=== PATIENT | male | born 1960 ===

== ENCOUNTER → 2020-11-18 11:08 | Outpatient (BNVA) | payer OTHER, SELFPAY | PROVIDERS: PCP Internal Medicine; Referring Provider Internal Medicine; Visit Provider Urology | DX: Z76.89 Persons encountering health services in other specified circumstances (principal) ==

== ENCOUNTER → 2021-08-15 09:19 | Outpatient (BNVA) | payer OTHER, SELFPAY | PROVIDERS: PCP Student in an Organized Health Care Education/Training Program; Visit Provider Urology ==

== ENCOUNTER → 2021-09-19 08:36 | Outpatient (BNVA) | payer OTHER, SELFPAY | PROVIDERS: PCP Student in an Organized Health Care Education/Training Program; Visit Provider Urology ==

== ENCOUNTER → 2022-02-13 08:36 | Outpatient (BNVA) | payer OTHER, SELFPAY | PROVIDERS: PCP Student in an Organized Health Care Education/Training Program; Visit Provider Urology | DX: N40.1 Benign prostatic hyperplasia with lower urinary tract symptoms (principal); N13.8 Other obstructive and reflux uropathy; N41.1 Chronic prostatitis; N52.9 Male erectile dysfunction, unspecified; R97.20 Elevated prostate specific antigen [PSA] | CPT/HCPCS: 51798 ==

== ENCOUNTER 2022-08-29 08:37 | Outpatient (REF) | payer OTHER, SELFPAY ==
[2022-08-29 10:52] LABS: Prostate Specific Antigen 2.46 ng/mL (<0.05-4.0)
== END 2022-08-29 08:38 | disposition home or self-care (01) ==
LOC: HO.10HDL 08:37
PROVIDERS: Visit Provider Urology
DX: N40.1 Benign prostatic hyperplasia with lower urinary tract symptoms (principal); N13.8 Other obstructive and reflux uropathy; R97.20 Elevated prostate specific antigen [PSA]; Z12.5 Encounter for screening for malignant neoplasm of prostate
CPT/HCPCS: 36415; 84153

== ENCOUNTER 2023-03-05 14:39 | Outpatient (REF) | payer OTHER, SELFPAY ==
[2023-03-05 16:04] LABS: Prostate Specific Antigen 4.68 ng/mL (<0.05-4.0)
== END 2023-03-05 14:40 | disposition home or self-care (01) ==
LOC: HO.LAB 14:39
PROVIDERS: Visit Provider Urology
DX: Z12.5 Encounter for screening for malignant neoplasm of prostate (principal); R97.20 Elevated prostate specific antigen [PSA]
CPT/HCPCS: 36415; 84153

== ENCOUNTER → 2023-03-12 11:08 | Outpatient (BNVA) | payer OTHER, SELFPAY | PROVIDERS: PCP Internal Medicine; Visit Provider Urology ==

== ENCOUNTER 2023-09-05 11:00 | Outpatient (REF) | payer OTHER, SELFPAY ==
[2023-09-05 14:02] LABS: PSA,Total (Free>4and<10) 3.83 ng/mL (0.00-4.00)
== END 2023-09-05 11:01 | disposition home or self-care (01) ==
LOC: HO.10HDL 11:00
PROVIDERS: Visit Provider Urology
DX: Z12.5 Encounter for screening for malignant neoplasm of prostate (principal); R97.20 Elevated prostate specific antigen [PSA]
CPT/HCPCS: 36415; 84153

== ENCOUNTER 2023-09-11 15:28 | Outpatient (AMB) | payer OTHER, SELFPAY ==
--- NOTE | 2023-09-11 15:34 | MHC.OFFVIS ---
Intake Intake Visit Reasons: 6m/PSA(set) Intake Note: Patient is Present for Follow Up Urology Medication: Finasteride Antibiotic Allergies: None Blood Thinners: Aspirin Allergies No Known Allergies Allergy (Verified 03/12/23 11:15) Medication List - Last Reconciled 09/11/23 by Johan Tovar MD aspirin 81 mg PO DAILY atorvastatin 40 mg PO DAILY finasteride 5 mg PO DAILY 90 days rosuvastatin 5 mg PO DAILY sildenafil 100 mg PO ONCE PRN 30 days HPI HPI Comments History of Present Illness Details German a very pleasant male. He is a patient of Dr. Hermosillo. 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 Symptoms have been present for/since gradual during 2017. Current treatment includes Viagra/sildenafil. Treatment side effects include none. Prior therapies include oral medications. At this time he experiences erections 07/22 are partial and adequate for vaginal penetration, that last until ejaculation, YOSVANY 12-16 Mild-Moderate ED. Nocturnal erections do occur. Currently they are in a stable relationship. Overall he is satisfied with the current management. Therapeutic plan includes increasing dose of oral medication. [facility] Medical History Elevated PSA Prostatitis BPH (benign prostatic hyperplasia) Surgical History History of vasectomy Review of Systems Const Denies chills and Denies fever(s) Card Reports no additional complaints and Denies syncope Resp Denies cough GI Denies abdominal pain and Denies heartburn Reports as per HPI and Denies change in libido Neuro Denies syncope Psych Denies change in libido Endo Denies change in libido Physical Exam Const General: cooperative, healthy appearing, comfortable and no acute distress Orientation/consciousness: patient oriented x3 HEENT Face and sinus: Yes normal facial exam Mouth: moist mucous membranes Neck Neck: Yes normal visual inspection, Yes full ROM and Yes trachea midline Chest Chest palpation & inspection: normal inspection of the chest Resp Effort & Inspection: normal respiratory effort, able to speak in complete sentences and no respiratory distress GI Inspection: Yes normal to inspection Back/Spine/Pelvis Cervical Spine: normal cervical lordosis Thoracic/Lumbar Spine: thoracic and lumbar spine normal to inspection Skin General skin exam: no rashes or lesions noted Neuro General: patient oriented x3, gait normal, tone normal and moves all extremities Extrem General: Yes normal to inspection and Yes capillary refill normal Assessment & Plan Assessment & Plan (1) Erectile dysfunction: Code(s): N52.9 - Male erectile dysfunction, unspecified (2) Elevated PSA: Code(s): R97.20 - Elevated prostate specific antigen [PSA] (3) BPH w urinary obs/LUTS: Code(s): N40.1 - Benign prostatic hyperplasia with lower urinary tract symptoms; N13.8 - Other obstructive and reflux uropathy Plan Six month follow-up Orders: Orders Prostate Specific Antigen 6 Months R97.20 - Elevated prostate specific antigen [PSA] Patient Instructions: Imaging studies, laboratory and physical exam results were discussed and reviewed in detail. No major barriers to patient understanding were identified. An opportunity to ask questions regarding the treatment plan was provided. All questions were answered. The patient expressed understanding and agreement with the above treatment plan. The patient is aware they should contact our office by phone for worsening of their current condition or the appearance of new urologic symptoms. Compliance is encouraged with any medications and followup testing that is ordered. It is a privilege to participate in the urologic care of your patient. If you have any questions or concerns regarding treatment for the above conditions, or other urologic issues, please do not hesitate to contact me. The office telephone contact is [phone]. This note is constructed using voice recognition software. While every effort has been made to ensure accuracy tacker off errors may have been included. Yours sincerely, Dr Johan Tovar MD, [facility] - Urology Providers of Expert, Compassionate Care for the Genitourinary System Coding Level of Care Code Est Pt Level 3 (84973) Diagnoses Erectile dysfunction N52.9 Elevated PSA R97.20 BPH w urinary obs/LUTS N40.1; N13.8
== END 2023-09-11 16:29 | disposition home or self-care (01) ==
PROVIDERS: Visit Provider Urology
DX: N52.9 Male erectile dysfunction, unspecified (principal); R97.20 Elevated prostate specific antigen [PSA]; N40.1 Benign prostatic hyperplasia with lower urinary tract symptoms; N13.8 Other obstructive and reflux uropathy
CPT/HCPCS: 99213

== ENCOUNTER → 2023-09-11 15:28 | Outpatient (BNVA) | payer OTHER, SELFPAY | PROVIDERS: Visit Provider Urology ==

== ENCOUNTER 2024-03-03 12:14 | Outpatient (REF) | payer OTHER, SELFPAY ==
[2024-03-03 14:20] LABS: Prostate Specific Antigen 1.98 ng/mL (<0.05-4.0)
== END 2024-03-03 12:15 | disposition home or self-care (01) ==
LOC: HO.10HDL 12:14
PROVIDERS: Visit Provider Urology
DX: R97.20 Elevated prostate specific antigen [PSA] (principal); Z12.5 Encounter for screening for malignant neoplasm of prostate
CPT/HCPCS: 36415; 84153

== ENCOUNTER 2024-03-12 08:39 | Outpatient (AMB) | payer OTHER, SELFPAY ==
--- NOTE | 2024-03-12 08:40 | MHC.OFFVIS ---
Intake Visit Reasons: 6m/PSA(set) Intake Note: Patient is Present for Telephone Follow Up Urology Med: Finasteride, Sildenafil Antibiotic Allergy:None Blood Thinner:Aspirin Allergies No Known Allergies Allergy (Verified 03/12/24 08:41) Medication List - Last Reconciled 03/12/24 by Johan Tovar MD aspirin 81 mg PO DAILY atorvastatin 40 mg PO DAILY finasteride 5 mg PO DAILY 90 days rosuvastatin 5 mg PO DAILY sildenafil 100 mg PO ONCE PRN 30 days HPI Comments Details: German a very pleasant male. He is a patient of Dr. Hermosillo. 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 02/25 2.0 Current therapy finasteride - every other day - minimal libido impact - 05/24 urine DNA test regarding risk for prostate cancer came back equivocal Erectile dysfunction: He presents today for for continued evaluation and management of erectile dysfunction. Symptoms have been present for/since gradual during 2017. Current treatment includes Viagra/sildenafil. Treatment side effects include none. Prior therapies include oral medications. At this time he experiences erections 07/22 are partial and adequate for vaginal penetration, that last until ejaculation, YOSVANY 12-16 Mild-Moderate ED. Nocturnal erections do occur. Currently they are in a stable relationship. Overall he is satisfied with the current management. Therapeutic plan includes increasing dose of oral medication. [facility] Medical History Elevated PSA Prostatitis BPH (benign prostatic hyperplasia) Surgical History History of vasectomy Telehealth Telehealth Telehealth Platform: Spontaneously Location of provider rendering services: practice address Location of patient: address on file Patient Identification confirmed using: Name, : Yes Telehealth method: video Patient verbally consented to treatment: Yes Patient verbally consented to billing insurance company: Yes Patient informed of any privacy concerns related to visit: Yes Minutes spent on Phone/Video with Pt.: 15 Assessment & Plan Assessment & Plan (1) BPH w urinary obs/LUTS: Code(s): N40.1 - Benign prostatic hyperplasia with lower urinary tract symptoms; N13.8 - Other obstructive and reflux uropathy Category: Medical (2) Prostatitis: Code(s): N41.9 - Inflammatory disease of prostate, unspecified Category: Medical (3) Elevated PSA: Code(s): R97.20 - Elevated prostate specific antigen [PSA] Category: Medical Plan Six month follow-up PSA Refill prescriptions Orders: Orders Prostate Specific Antigen 6 Months N41.9 - Inflammatory disease of prostate, unspecified, R97.20 - Elevated prostate specific antigen [PSA] Medications: Refilled finasteride 5 mg PO DAILY 90 days 90 tabs 1RF N40.1 - Benign prostatic hyperplasia with lower urinary tract symptoms, R33.9 - Retention of urine, unspecified sildenafil administer 60 minutes before intended activity 100 mg PO ONCE 30 days PRN 30 tabs 1RF sexual activity N52.9 - Male erectile dysfunction, unspecified Patient Instructions: Imaging studies, laboratory and physical exam results were discussed and reviewed in detail. No major barriers to patient understanding were identified. An opportunity to ask questions regarding the treatment plan was provided. All questions were answered. The patient expressed understanding and agreement with the above treatment plan. The patient is aware they should contact our office by phone for worsening of their current condition or the appearance of new urologic symptoms. Compliance is encouraged with any medications and followup testing that is ordered. It is a privilege to participate in the urologic care of your patient. If you have any questions or concerns regarding treatment for the above conditions, or other urologic issues, please do not hesitate to contact me. The office telephone contact is [phone]. This note is constructed using voice recognition software. While every effort has been made to ensure accuracy product technician errors may have been included. Yours sincerely, Dr Johan Tovar MD, [facility] - Urology Providers of Expert, Compassionate Care for the Genitourinary System Coding Level of Care Code Tele Est Pt Level 3 (34825) Diagnoses BPH w urinary obs/LUTS N40.1; N13.8 Prostatitis N41.9 Elevated PSA R97.20
== END 2024-03-12 09:44 | disposition home or self-care (01) ==
LOC: HO.HUSH 08:39
PROVIDERS: PCP Internal Medicine; Visit Provider Urology
DX: N40.1 Benign prostatic hyperplasia with lower urinary tract symptoms (principal); N13.8 Other obstructive and reflux uropathy; N41.9 Inflammatory disease of prostate, unspecified; R97.20 Elevated prostate specific antigen [PSA]
CPT/HCPCS: 99213

== ENCOUNTER → 2024-03-12 08:39 | Outpatient (BNVA) | payer OTHER, SELFPAY | PROVIDERS: PCP Internal Medicine; Visit Provider Urology ==

== ENCOUNTER 2024-09-02 13:30 | Outpatient (REF) | payer OTHER, SELFPAY ==
[2024-09-02 15:06] LABS: Prostate Specific Antigen 2.01 ng/mL (<0.05-4.0)
== END 2024-09-02 13:31 | disposition home or self-care (01) ==
LOC: HO.LAB 13:30
PROVIDERS: PCP Internal Medicine; Visit Provider Urology
DX: R97.20 Elevated prostate specific antigen [PSA] (principal); N41.9 Inflammatory disease of prostate, unspecified; Z12.5 Encounter for screening for malignant neoplasm of prostate
CPT/HCPCS: 36415; 84153

== ENCOUNTER 2024-09-11 11:40 | Outpatient (AMB) | payer OTHER, SELFPAY ==
--- NOTE | 2024-09-11 11:38 | A.OFFVIS_ITS ---
Intake Visit Reasons: 6m/PSA(set) Intake Note: Patient Is Present for PSA Follow Up Urology Med: Sildenafil, Finasteride Antibiotic Allergy: None Blood Thinner: Aspirin PSA 09/02/24- 2.01 Allergies No Known Allergies Allergy (Verified 03/12/24 08:41) HPI Comments Details: German a very pleasant male. He is a patient of Dr. Hermosillo. 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 02/25 2.0, 08/27 2.0 Current therapy finasteride - every other day - minimal libido impact - 05/24 urine DNA test regarding risk for prostate cancer came back equivocal Erectile dysfunction: He presents today for for continued evaluation and management of erectile dysfunction. Symptoms have been present for/since gradual during 2017. Current treatment includes Viagra/sildenafil. Treatment side effects include none. Prior therapies include oral medications. At this time he experiences erections 07/22 are partial and adequate for vaginal penetration, that last until ejaculation, YOSVANY 12-16 Mild-Moderate ED. Nocturnal erections do occur. Currently they are in a stable relationship. Overall he is satisfied with the current management. Therapeutic plan includes increasing dose of oral medication. [facility] Medical History Elevated PSA Prostatitis BPH (benign prostatic hyperplasia) Surgical History History of vasectomy Review of Systems Const Denies chills and Denies fever(s) Card Reports no additional complaints and Denies syncope Resp Denies cough GI Denies abdominal pain and Denies heartburn Reports as per HPI and Denies change in libido Neuro Denies syncope Psych Denies change in libido Endo Denies change in libido Physical Exam Const General: cooperative, healthy appearing, comfortable and no acute distress Orientation/consciousness: patient oriented x3 HEENT Face and sinus: Yes normal facial exam Mouth: moist mucous membranes Neck Neck: Yes normal visual inspection, Yes full ROM and Yes trachea midline Chest Chest palpation & inspection: normal inspection of the chest Resp Effort & Inspection: normal respiratory effort, able to speak in complete sentences and no respiratory distress GI Inspection: Yes normal to inspection Back/Spine/Pelvis Cervical Spine: normal cervical lordosis Thoracic/Lumbar Spine: thoracic and lumbar spine normal to inspection Skin General skin exam: no rashes or lesions noted Neuro General: patient oriented x3, gait normal, tone normal and moves all extremities Extrem General: Yes normal to inspection and Yes capillary refill normal Assessment & Plan Assessment & Plan (1) BPH w urinary obs/LUTS: Code(s): N40.1 - Benign prostatic hyperplasia with lower urinary tract symptoms; N13.8 - Other obstructive and reflux uropathy Category: Medical (2) Elevated PSA: Code(s): R97.20 - Elevated prostate specific antigen [PSA] Category: Medical (3) Erectile dysfunction: Code(s): N52.9 - Male erectile dysfunction, unspecified Category: Medical Plan Six-month follow-up Orders: Orders Prostate Specific Antigen 6 Months R97.20 - Elevated prostate specific antigen [PSA] Patient Instructions: Imaging studies, laboratory and physical exam results were discussed and reviewed in detail. No major barriers to patient understanding were identified. An opportunity to ask questions regarding the treatment plan was provided. All questions were answered. The patient expressed understanding and agreement with the above treatment plan. The patient is aware they should contact our office by phone for worsening of their current condition or the appearance of new urologic symptoms. Compliance is encouraged with any medications and followup testing that is ordered. It is a privilege to participate in the urologic care of your patient. If you have any questions or concerns regarding treatment for the above conditions, or other urologic issues, please do not hesitate to contact me. The office telephone contact is [phone]. This note is constructed using voice recognition software. While every effort has been made to ensure accuracy automotive manufacturer errors may have been included. Yours sincerely, Dr Johan Tovar MD, [facility] - Urology Providers of Expert, Compassionate Care for the Genitourinary System Coding Level of Care Code Est Pt Level 3 (94853) Diagnoses BPH w urinary obs/LUTS N40.1; N13.8 Elevated PSA R97.20 Erectile dysfunction N52.9
== END 2024-09-11 12:15 | disposition home or self-care (01) ==
PROVIDERS: PCP Internal Medicine; Visit Provider Urology
DX: N40.1 Benign prostatic hyperplasia with lower urinary tract symptoms (principal); N13.8 Other obstructive and reflux uropathy; R97.20 Elevated prostate specific antigen [PSA]; N52.9 Male erectile dysfunction, unspecified
CPT/HCPCS: 99213

== ENCOUNTER → 2024-09-11 11:40 | Outpatient (BNVA) | payer OTHER, SELFPAY | PROVIDERS: PCP Internal Medicine; Visit Provider Urology ==

== ENCOUNTER 2025-03-08 14:34 | Outpatient (REF) | payer OTHER, SELFPAY ==
--- OUTSIDE RECORDS SUMMARY | 2025-03-08 16:06 | XMS_ITS ---
Author Organization [facility] [place] [address] Care Team Providers Care Conditioner Tumbler Name Role Phone BLANCHARDETHEL MADRIGAL Unavailable [phone] Encounters Encounter Location Date Provider Diagnosis [facility] [address] [facility] [address] [place] [address] 07/10/2024 ETHEL BLANCHARD PLAN OF TREATMENT Next Appt Details Provider Name:TYRON EDWARDS, 08/19/2025 08:15:00 AM, [address], [place], [address], Progress Notes * German YOUNGDOB: 0 (64 yo M)Acc No.[id number]:07/10/2024 Patient:??German YOUNG :1960?Age:64 Y?Sex:Gregorio minh Address:[address] [place] [address] * true * Date:??
--- OUTSIDE RECORDS SUMMARY | 2025-03-08 16:06 | XMS_ITS ---
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 Name Role Phone ETHEL HERMOSILLO Unavailable [phone] TYRON EDWARDS Unavailable [phone] ALLERGIES No Known Allergies REASON FOR VISIT pt is for 6 month f/u MEDICATIONS Medication SIG (Take, Route, Frequency, Duration) Notes Start Date End Date Status Multivitamin Active CoQ10 100 MG as directed Orally Active Rosuvastatin Calcium 5 MG 1 tablet Orall y every other day for 90 days Active Finasteride 5 MG 1 tablet Orally Once a day Active SOCIAL HISTORY Tobacco Use: Social History Observation Description Date Details (start date - stop date) Never Smoker NA - NA Sex Assigned At : Social History Observation Description Sex Assigned At Unknown Tobacco Use/Smoking Question Answer Notes Are you a nonsmoker Section Notes: Tobacco: None Alcohol: Socially Marijuana: None PROBLEMS Problem Type ICD Code Onset Dates Problem Status W/U Status Risk SNOMED Code Notes Problem BPH without urinary obstruction (N40.0) Active confirmed 246428944 Problem Overweight (BMI 25.0-29.9) (E66.3) Active confirmed 865922741 VITAL SIGNS Blood pressure systolic 112 mm Hg 02/19/20 25 Blood pressure diastolic 74 mm Hg 025 Heart Rate 64 /min 02/18/2025 Height 71 in 02/18/2025 Weight 207.4 lbs 02/18/2025 BMI 28.92 kg/m2 02/18/2025 Oximetry 96 % 02/18/2025 Encounters Encounter Location Date Provider Diagnosis [email or web address] [address] [place] [address] 02/18/2025 TYRON EDWARDS Mixed hyperlipidemia E78.2 ; BPH without urinary obstruction N40.0 and Overweight (BMI 25.0-29.9) E66.3 ASSESSMENTS Encounter Date Diagnosis Assessment Notes Treatment Notes Treatment Clinical Notes Section Notes 02/18/2025 Mixed hyperlipidemia (ICD-10 - E78.2) German is a 65-year-old male present today for 6-month follow-up. Past medical history includes BPH, hyperlipidemia and gout. #PSA #BPH: Most recent PSA from 08/2024 of 2.01. Followed by urology every 6 months. Monitors both PSA and BPH. BPH managed on finasteride 5 mg p.o. once daily. Continue with urology recommendations. #Elevated BMI: Wt: 207.4 lbs, BMI: 28.92 patient fairly active doing a variety of cardio as well as pickleball. Endorses a well-balanced diet, but does say he enjoys drinking beer. Recommend limiting alcohol, processed food and sugar. Will continue to monitor. #Hyperlipidemia: Patient has been tapering off of rosuvastatin at patient's request. Previously taking every other day and then had decreased to twice a week. Has been compliant with this. Has noticed a reduction in muscle cramps. Patient overall very active and eats a well-balanced diet. Given lipids within normal range, patient interested in trialing off of rosuvastatin. Recommended if patient is to proceed with this, will order a coronary calcium scan for further evaluation of any degree of coronary artery disease. Patient okay with this. Will call patient regarding test results. Will continue to monitor cholesterol closer. Recommend patient continue with daily fish oil as well as co-Q10 supplements. #Prevention: Plan follow-up in 6 months for CPE. Will obtain baseline labs as well as add on PSA. All questions answered to patients satisfaction. Patient verbalized understanding of diagnosis and treatments explained. To call sooner prior to next visit it any questions/concerns arise. Case discussed with collaborating physician Dr. Hermosillo who reviewed the assessment and plan. Chart, medications, labs, vital signs reviewed. Dictation was accomplished with the use of [employer] voice recognition software, prone to medical misidentifications and grammatical errors. This is unintentional and the practitioner does try to identify and correct these, but some could still be present. Please do not hesitate to contact practitioner for clarification. 02/18/2025 BPH without urinary obstruction (ICD-10 - N40.0) German is a 65-year-old male present today for 6-month follow-up. Past medical history includes BPH, hyperlipidemia and gout. #PSA #BPH: Most recent PSA from 08/2024 of 2.01. Followed by urology every 6 months. Monitors both PSA and BPH. BPH managed on finasteride 5 mg p.o. once daily. Continue with urology recommendations. #Elevated BMI: Wt: 207.4 lbs, BMI: 28.92 patient fairly active doing a variety of cardio as well as pickleball. Endorses a well-balanced diet, but does say he enjoys drinking beer. Recommend limiting alcohol, processed food and sugar. Will continue to monitor. #Hyperlipidemia: Patient has been tapering off of rosuvastatin at patient's request. Previously taking every other day and then had decreased to twice a week. Has been compliant with this. Has noticed a reduction in muscle cramps. Patient overall very active and eats a well-balanced diet. Given lipids within normal range, patient interested in trialing off of rosuvastatin. Recommended if patient is to proceed with this, will order a coronary calcium scan for further evaluation of any degree of coronary artery disease. Patient okay with this. Will call patient regarding test results. Will continue to monitor cholesterol closer. Recommend patient continue with daily fish oil as well as co-Q10 supplements. #Prevention: Plan follow-up in 6 months for CPE. Will obtain baseline labs as well as add on PSA. All questions answered to patients satisfaction. Patient verbalized understanding of diagnosis and treatments explained. To call sooner prior to next visit it any questions/concerns arise. Case discussed with collaborating physician Dr. Hermosillo who reviewed the assessment and plan. Chart, medications, labs, vital signs reviewed. Dictation was accomplished with the use of [employer] voice recognition software, prone to medical misidentifications and grammatical errors. This is unintentional and the practitioner does try to identify and correct these, but some could still be present. Please do not hesitate to contact practitioner for clarification. 02/18/2025 Overweight (BMI 25.0-29.9) (ICD-10 - E66.3) German is a 65-year-old male present today for 6-month follow-up. Past medical history includes BPH, hyperlipidemia and gout. #PSA #BPH: Most recent PSA from 08/2024 of 2.01. Followed by urology every 6 months. Monitors both PSA and BPH. BPH managed on finasteride 5 mg p.o. once daily. Continue with urology recommendations. #Elevated BMI: Wt: 207.4 lbs, BMI: 28.92 patient fairly active doing a variety of cardio as well as pickleball. Endorses a well-balanced diet, but does say he enjoys drinking beer. Recommend limiting alcohol, processed food and sugar. Will continue to monitor. #Hyperlipidemia: Patient has been tapering off of rosuvastatin at patient's request. Previously taking every other day and then had decreased to twice a week. Has been compliant with this. Has noticed a reduction in muscle cramps. Patient overall very active and eats a well-balanced diet. Given lipids within normal range, patient interested in trialing off of rosuvastatin. Recommended if patient is to proceed with this, will order a coronary calcium scan for further evaluation of any degree of coronary artery disease. Patient okay with this. Will call patient regarding test results. Will continue to monitor cholesterol closer. Recommend patient continue with daily fish oil as well as co-Q10 supplements. #Prevention: Plan follow-up in 6 months for CPE. Will obtain baseline labs as well as add on PSA. All questions answered to patients satisfaction. Patient verbalized understanding of diagnosis and treatments explained. To call sooner prior to next visit it any questions/concerns arise. Case discussed with collaborating physician Dr. Hermosillo who reviewed the assessment and plan. Chart, medications, labs, vital signs reviewed. Dictation was accomplished with the use of [employer] voice recognition software, prone to medical misidentifications and grammatical errors. This is unintentional and the practitioner does try to identify and correct these, but some could still be present. Please do not hesitate to contact practitioner for clarification. PLAN OF TREATMENT Pending Test Test Name Order Date LIPID PANEL, STANDARD 02/18/2025 COMPREHENSIVE METABOLIC PANEL 02/18/2025 CBC (INCLUDES DIFF/PLT) 02/18/2025 HEMOGLOBIN A1c 02/18/2025 PSA (FREE AND TOTAL) 02/18/2025 VITAMIN D,25-OH,TOTAL,IA 02/18/2025 TSH+T4F+T3Free 02/18/2025 Next Appt Details Provider Name:TYRON EDWARDS, 08/19/2025 08:15:00 AM, [address], [place], [address], Progress Notes * German YOUNGDOB: [birth year] (65 yo M)Acc No.[id number]:02/18/2025 Progress Notes Patient:??German YOUNG Provider:??TYRON EDWARDS PA-C :1960?Age:65 Y?Sex:Ma le Date:02/18/2025 Address:[address] [place], [place] [id number] Subjective: * Chief Complaints: * ?1. Pt is for 6 month f /u. * HPI: ?Constitutional:? German is a 65-year-old male present today for 6-month follow-up. Past medical history includes BPH, hyperlipidemia and history of gout. ?Patient followed by urology with Dr. Tovar, last visit in September. Monitoring both PSA and BPH. PSA from 08/2024 of 2.01. Followed by urology every 6 months. Patient also followed with podiatry and dermatology. ?Patient on rosuvastatin and expressed interest of getting off of this medication. Initially decreased to rosuvastatin 5 mg every other day in which patient had reduced muscle cramping. At last visit on 07/20, patient reduced rosuvastatin to 5 mg twice a week. ?Reviewed blood work ordered prior to this visit which revealed cholesterol within normal limits, CMP, CBC and urinalysis unremarkable. ?Patient overall doing well. States he is active, runs on treadmill. * ROS:?Constitutional: Patient denies any excessive fatigue with exercise, no weight loss, no fever, no night sweats, no changes in sleep. ???Eyes: No eye discharge, no itching, no redness, no vision changes. Advised the significance of regular eye exams to screen for glaucoma and other eye problems. ???Ear nose throat: No ear pain, No sore throat, no postnasal drip, no runny nose, no sneezing, no hearing changes ???Cardiovascular: No chest pain, no dyspnea on exertion, no PND, no orthopnea, no irregular pulse, no palpitations, no claudication, no diaphoresis, no claudication. ???Respiratory: No chronic cough, no hemoptysis, no sputum, no wheezing, no SOB, no pleuritic pain. ???GI, No diarrhea, no constipation, no blood in the stools, no pain associated with eating, no indigestion, no difficulty swallowing, no appetite change. ???Genitourinary: No painful urination, no hesitancy, no blood in the urine, no incontinence, no frequency, no urgency, no abnormal discharge. ???Musculoskeletal: No back pain, no joint pain, no limitations to walking and running, no joint deformity, no joint stiffness, no muscle weakness ???Integumentary: No new skin rash. No new changes in skin moles, no pruritis, no color change. ???Neurological: No history of seizures, no memory loss, no language dysfunction, no inability to concentrate, no localized weakness, no sensation loss, no confusion, no dizziness, no tremor, no numbness, no tingling. ???Psychiatric: no anxiety, no depression, no suicidal thoughts, feels safe at home. ???Endocrine: No polyuria, no polyphagia, no polydipsia. No heat/cold intolerance, no excesss thirst. ???Hematological: No easy bruising or bleeding, no lymph node swelling. * Medical History:??Seasonal a llergies, Hyperlipidemia, BPH. * Surgical History:??Denies Pa st Surgical History. * Hospitalization/Major Diagno stic Procedure:??Denies Past Hospitalization. * Family History:??Father: dec eased.??Mother: alive.?? * Social History:?Tobacco Use:??Tobacco Use/Smoking??Are you a??nonsmoker.?Tobacco: None ???Alcohol: Socially ???Marijuana: None. * Medications:??Taking CoQ10 1 00 MG Capsule as directed Orally , Taking Multivitamin , Taking Finasteride 5 MG Tablet 1 tablet Orally Once a day , Taking Rosuvastatin Calcium 5 MG Tablet 1 tablet Orally every other day , Medication List reviewed and reconciled with the patient * Allergies:??N.K.D.A. Objective: * Vitals:??HR:64/min, BP:112/7 4mm Hg, Wt:207.4lbs, BMI:28.92Index, Ht: 71 in, Oxygen sat %:96%. * Physical Examination:?General: Age appropriate male, well appearing, no acute distress, speaking in full sentences without respiratory compromise. Well groomed, well developed. Alert, Interactive. ? Skin: Warm, dry and intact. ? HEENT: Normocephalic/atraumatic. ? Neck/Thyroid: Supple. Full ROM. ? Lung: Clear to auscultation bilaterally, no wheezes, rales or rhonchi. No barrel chest. Equal chest rise and fall bilaterally. ? Cardiac: S1 and S2 appreciated. No murmurs/rubs or gallops. ? Psych: Stable mood and affect. Assessment: * Assessment: 1.??Mixed hyperlipidemia - E 78.2 (Primary)??2.??BPH without urinary obstruction - N40.0??3.??Overweight (BMI 25.0-29.9) - E66.3?? German is a 65-year-old male p resent today for 6-month follow-up. Past medical history includes BPH, hyperlipidemia and gout. #PSA #BPH: Most recent PSA from 08/2024 of 2.01. Followed by urology every 6 months. Monitors both PSA and BPH. BPH managed on finasteride 5 mg p.o. once daily. Continue with urology recommendations. #Elevated BMI: Wt: 207.4 lbs, BMI: 28.92 patient fairly active doing a variety of cardio as well as pickleball. Endorses a well-balanced diet, but does say he enjoys drinking beer. Recommend limiting alcohol, processed food and sugar. Will continue to monitor. #Hyperlipidemia: Patient has been tapering off of rosuvastatin at patient's request. Previously taking every other day and then had decreased to twice a week. Has been compliant with this. Has noticed a reduction in muscle cramps. Patient overall very active and eats a well-balanced diet. Given lipids within normal range, patient interested in trialing off of rosuvastatin. Recommended if patient is to proceed with this, will order a coronary calcium scan for further evaluation of any degree of coronary artery disease. Patient okay with this. Will call patient regarding test results. Will continue to monitor cholesterol closer. Recommend patient continue with daily fish oil as well as co-Q10 supplements. #Prevention: Plan follow-up in 6 months for CPE. Will obtain baseline labs as well as add on PSA. All questions answered to patients satisfaction. Patient verbalized understanding of diagnosis and treatments explained. To call sooner prior to next visit it any questions/concerns arise. Case discussed with collaborating physician Dr. Hermosillo who reviewed the assessment and plan. Chart, medications, labs, vital signs reviewed. Dictation was accomplished with the use of [employer] voice recognition software, prone to medical misidentifications and grammatical errors. This is unintentional and the practitioner does try to identify and correct these, but some could still be present. Please do not hesitate to contact practitioner for clarification. Plan: * Treatment: * Labs:?? * ?Lab: HEMOGLOBIN A1 c ?Lab: PSA (FREE AND TOTAL) ?Lab: VITAMIN D,25- [place],TOTAL,IA ?Lab: TSH+T4F+T3Fre e ?Lab: COMPREHENSIVE METABOLIC PANEL ?Lab: CBC (INCLUDES DIFF/PLT) ?Lab: LIPID PANEL, STANDARD * Images: Billing Information: * Visit Code:?? 24250 Office Visit, Est Pt., Level 4. Modifiers: SA * Procedure Codes:?? Care Plan Details* * Sign off status: Completed true * Provider:??TYRON EDWARDS PA-C Date:?? History and Physical Notes * HPI (History of Present Illness) Category Sub-Category Detail Notes Category Not es Constitutional German is a 65-year-old male present today for 6-month follow-up. Past medical history includes BPH, hyperlipidemia and history of gout. Patient followed by urology with Dr. Tovar, last visit in September. Monitoring both PSA and BPH. PSA from 08/2024 of 2.01. Followed by urology every 6 months. Patient also followed with podiatry and dermatology. Patient on rosuvastatin and expressed interest of getting off of this medication. Initially decreased to rosuvastatin 5 mg every other day in which patient had reduced muscle cramping. At last visit on 07/20, patient reduced rosuvastatin to 5 mg twice a week. Reviewed blood work ordered prior to this visit which revealed cholesterol within normal limits, CMP, CBC and urinalysis unremarkable. Patient overall doing well. States he is active, runs on treadmill. Physical Examination Category Sub-Category Detail Notes Section Note s General: Age appropriate male, well appearing, no acute distress, speaking in full sentences without respiratory compromise. Well groomed, well developed. Alert, Interactive. Skin: Warm, dry and intact. HEENT: Normocephalic/atraumatic. Neck/Thyroid: Supple. Full ROM. Lung: Clear to auscultation bilaterally, no wheezes, rales or rhonchi. No barrel chest. Equal chest rise and fall bilaterally. Cardiac: S1 and S2 appreciated. No murmurs/rubs or gallops. Psych: Stable mood and affect.
--- OUTSIDE RECORDS SUMMARY | 2025-03-08 16:06 | XMS_ITS ---
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 Name Role Phone JENSEN HERMOSILLO Unavailable [phone] ALLERGIES No Known Allergies REASON FOR VISIT pt presents in office today for routine follow up with completed labs for review MEDICATIONS Medication SIG (Take, Route, Frequency, Duration) Notes Start Date End Date Status CoQ10 100 MG as directed Orally Active Finasteride 5 MG 1 tablet Orally Once a day Active Multivitamin Active Rosuvastatin Calcium 5 MG 1 tablet Orall y every other day for 90 days Active SOCIAL HISTORY Tobacco Use: Social History Observation Description Date Details (start date - stop date) Never Smoker NA - NA Sex Assigned At : Social History Observation Description Sex Assigned At Unknown Tobacco Use/Smoking Question Answer Notes Are you a nonsmoker Section Notes: Tobacco: None Alcohol: Socially Marijuana: None VITAL SIGNS Blood pressure systolic 134 mm Hg 07/20/20 24 Blood pressure diastolic 80 mm Hg 024 Heart Rate 65 /min 07/20/2024 Height 71 in 07/20/2024 Weight 201.6 lbs 07/20/2024 BMI 28.11 kg/m2 07/20/2024 Oximetry 97 % 07/20/2024 Encounters Encounter Location Date Provider Diagnosis [facility] [address] [place] [address] 07/20/2024 AZEBKARON FERNÁNDEZAN Elevated lipids E78. 5 and Benign prostatic hyperplasia without lower urinary tract symptoms N40.0 ASSESSMENTS Encounter Date Diagnosis Assessment Notes Treatment Notes Treatment Clinical Notes Section Notes 07/20/2024 Elevated lipids (ICD-10 - E78.5) German is a well appearing 64 yr old M who presents with no acute concerns. Physical exam is unremarkable. Assessment is a well appearing 64 yr old M with BPH followed by urology, HLD, and gout. Patient educated to obtain flu vaccination in August, patient declines Covid booster at this time. Patient should continue scheduled follow up with dermatology, podiatry and urology. Plan is to follow up in February and repeat labs then. #HLD - Most recent labs - Last visit patient Rosuvastatin decreased to 5 mg every other day. Endorses reduced muscle cramping with this dose - Plan is to reduced Rosuvastatin to 5 mg twice a week and follow up in February with repeat labs. #BPH - Last PSA Jul 2023 2.6 - Denies any urinary concerns - Plan is to continue finasteride and follow up with urology 07/20/2024 Benign prostatic hyperplasia without lower urinary tract symptoms (ICD-10 - N40.0) German is a well appearing 64 yr old M who presents with no acute concerns. Physical exam is unremarkable. Assessment is a well appearing 64 yr old M with BPH followed by urology, HLD, and gout. Patient educated to obtain flu vaccination in August, patient declines Covid booster at this time. Patient should continue scheduled follow up with dermatology, podiatry and urology. Plan is to follow up in February and repeat labs then. #HLD - Most recent labs - Last visit patient Rosuvastatin decreased to 5 mg every other day. Endorses reduced muscle cramping with this dose - Plan is to reduced Rosuvastatin to 5 mg twice a week and follow up in February with repeat labs. #BPH - Last PSA Jul 2023 2.6 - Denies any urinary concerns - Plan is to continue finasteride and follow up with urology PLAN OF TREATMENT Pending Test Test Name Order Date LIPID PANEL, STANDARD 07/20/2024 COMPREHENSIVE METABOLIC PANEL 07/20/2024 CBC (INCLUDES DIFF/PLT) 07/20/2024 URINALYSIS, COMPLETE 07/20/2024 Next Appt Details Provider Name:TYRON EDWARDS, 08/19/2025 08:15:00 AM, [address], [place], [address], Progress Notes * German YOUNGDOB: [birth year] (64 yo M)Acc No.[id number]:07/20/2024 Progress Notes Patient:??German YOUNG Provider:??Jensen Hermosillo MD :1960?Age:64 Y?Sex:Gregorio wilkinson Date:07/20/2024 Address: [id number] Subjective: * Chief Complaints: * ?1. Pt presents in offi ce today for routine follow up with completed labs for review. * HPI: ?Constitutional:? 64 yr old M with a PMHx of HLD, BPH and gout presents for follow up. Last visit patient was interested in discontinuing his Rosuvastatin, was decreased to 5 mg every other day back in January. Has had decreased muscle aches with the reduction in med dosing. Still running 2 miles a day and pickleball multiple times a week. Patient states he still has occasional L hallux pain, followed by podiatry, was recommended to have a fusion. Followed by Dermatology for multiple actinic keratosis on his head, see them next in November, Denies and chest pain, SOB, dizziness or headache. ?Labs 07/2024 Cholesterol Total 153, Triglycerides 83, HDL Cholesterol 61, VLDL Cholesterol Kash 16, LDL Chol Calc ([facility]) 76 ?Influenza: due ?COVID: due, declines ?Shingrix: completed in 2020 ?Tdap: last in 2020 ?Colonoscopy: 2020 ?PSA: 2.6 Jul 2023, followed by urology () will see in September. * ROS:?Constitutional: Patient denies any excessive fatigue with exercise, no weight loss, no fever and no night sweats ???Eyes: No eye discharge, no itching, no redness. Advised the significance of regular eye exams to screen for glaucoma and other eye problems ???Ear nose throat: No sore throat, postnasal drip, runny nose, Sneezing ???Cardiovascular: No chest pain, no shortness of breath, no dyspnea on exertion, no PND, no orthopnea, no irregular pulse ???Respiratory: No chronic cough, no hemoptysis, no sputum, no wheezing ???GI, no diarrhea, no constipation no blood in the stools, no pain associated with eating, no indigestion ???Genitourinary: No painful urination no hesitancy no blood in the urine ???Musculoskeletal, +right great toe pain and stiffness, no limitations to walking and running, no chronic back pain, no noise with joint movement ???Integumentary, +scalp peeling s/p light therapy ???Neurological: No history of seizures, memory loss, No language dysfunction, No inability to concentrate, no localized weakness, no sensation loss, no confusion ???Psychiatric: No depression, no suicidal thoughts, no anxiety ???Endocrine: No polyuria no polyphagia or polydipsia, no heat intolerance no cold intolerance ???Hematological: No easy bruising or Lymph node swelling. * Medical History:??Seasonal a llergies. * Family History:??Father: dec eased.??Mother: alive.?? * [...] with the patient * Allergies:??N.K.D.A. Objective: * Vitals:??HR:65/min, BP:134/8 0mm Hg, Wt:201.6lbs, BMI:28.11Index, Ht: 71 in, Oxygen sat %:97%. * Physical Examination:?Patient seen and examined ?Vitals noted ?Head and ENT: PERRLA EOMI, neck supple, good range of motion, thyroid within normal limits. No sinus tenderness. ?Cardiovascular system S1 and S2 with no murmur or gallop or rubs. ?Lungs clear to percussion and auscultation ?Abdomen soft positive bowel sounds no hepatosplenomegaly ?Extremities no edema. Mild swelling to right great toe with slight bunion. No erythema, warmth, or deformity. ?Neuro: No gross deficit, sensation and power intact. . Reflexes appear normal ?Gait appears age-appropriate ?Skin exam: mild peeling skin of the scalp with mild erythema and crusting. No new skin rashes or lesion. Assessment: * Assessment: 1.??Elevated lipids - E78.5? ?2.??Benign prostatic hyperplasia without lower urinary tract symptoms - N40.0?? German is a well appearing 64 yr old M who presents with no acute concerns. Physical exam is unremarkable. Assessment is a well appearing 64 yr old M with BPH followed by urology, HLD, and gout. Patient educated to obtain flu vaccination in August, patient declines Covid booster at this time. Patient should continue scheduled follow up with dermatology, podiatry and urology. Plan is to follow up in February and repeat labs then. #HLD - Most recent labs - Last visit patient Rosuvastatin decreased to 5 mg every other day. Endorses reduced muscle cramping with this dose - Plan is to reduced Rosuvastatin to 5 mg twice a week and follow up in February with repeat labs. #BPH - Last PSA Jul 2023 2.6 - Denies any urinary concerns - Plan is to continue finasteride and follow up with urology. Plan: * Treatment: * Labs:?? * ?Lab: URINALYSIS, C OMPLETE ?Lab: COMPREHENSIVE METABOLIC PANEL ?Lab: CBC (INCLUDES DIFF/PLT) * Images: Billing Information: * Visit Code:?? 61590 Office Visit, Est Pt., Level 4. * Procedure Codes:?? Care Plan Details* * Sign off status: Completed true * Provider:??Jensen Hermosillo MD Date:??07/20 History and Physical Notes * HPI (History of Present Illness) Category Sub-Category Detail Notes Category Not es Constitutional 64 yr old M with a PMHx of HLD, BPH and gout presents for follow up. Last visit patient was interested in discontinuing his Rosuvastatin, was decreased to 5 mg every other day back in January. Has had decreased muscle aches with the reduction in med dosing. Still running 2 miles a day and pickleball multiple times a week. Patient states he still has occasional L hallux pain, followed by podiatry, was recommended to have a fusion. Followed by Dermatology for multiple actinic keratosis on his head, see them next in November, Denies and chest pain, SOB, dizziness or headache. Labs 07/2024 Cholesterol Total 153, Triglycerides 83, HDL Cholesterol 61, VLDL Cholesterol Kash 16, LDL Chol Calc ([facility]) 76 Influenza: due COVID: due, declines Shingrix: completed in 2020 Tdap: last in 2020 Colonoscopy: 2020 PSA: 2.6 Jul 2023, followed by urology () will see in September Physical Examination Category Sub-Category Detail Notes Section Note s Patient seen and examined Vitals noted Head and ENT: PERRLA EOMI, neck supple, good range of motion, thyroid within normal limits. No sinus tenderness. Cardiovascular system S1 and S2 with no murmur or gallop or rubs. Lungs clear to percussion and auscultation Abdomen soft positive bowel sounds no hepatosplenomegaly Extremities no edema. Mild swelling to right great toe with slight bunion. No erythema, warmth, or deformity. Neuro: No gross deficit, sensation and power intact. . Reflexes appear normal Gait appears age-appropriate Skin exam: mild peeling skin of the scalp with mild erythema and crusting. No new skin rashes or lesion.
--- OUTSIDE RECORDS SUMMARY | 2025-03-08 16:07 | XMS_ITS | Patient Health Record ---
Author Organization [facility] Address [address] [place] [address] Care Team Providers Care Steam Trap Man Name Role Phone ETHEL HERMOSILLO Unavailable [phone] TYRON EDWARDS Unavailable [phone] ALLERGIES No Known Allergies RESULTS Component Value Reference Range Notes LIPID PANEL, STANDARD Reviewed date:02/17/2025 10:08:46 AM Interpretation: Performing Lab:NL2, [facility] [address] [place], [place] [address] Elliott Allen Notes/Report: FASTING: YES FASTING:YES CHOLESTEROL, TOTAL 155 <200 mg/dL HDL CHOLESTEROL 64 > OR = 40 mg/dL TRIGLYCERIDES 59 <150 mg/dL LDL-CHOLESTEROL 77 Reference range: <100 Desirable range <100 mg/dL for primary prevention; <70 mg/dL for patients with CHD or diabetic patients with > or = 2 CHD risk factors. LDL-C is now calculated using the Manuel-Yaya calculation, which is a validated novel method providing better accuracy than the Friedewald equation in the estimation of LDL-C. Manuel GOYAL et al. RACHEL. 2013;310(19): 4005-8610 (http://education.Invrep.[employer]/faq/QBY285) CHOL/HDLC RATIO 2.4 <5.0 (calc) NON HDL CHOLESTEROL 91 <130 mg/dL (calc) For patients with diabetes plus 1 major ASCVD risk factor, treating to a non-HDL-C goal of <100 mg/dL (LDL-C of <70 mg/dL) is considered a therapeutic option. COMPREHENSIVE METABOLIC PANE L Reviewed date:02/17/2025 10:08:35 AM Interpretation: Performing Lab:2, [facility] Elliott Allen Notes/Report: FASTING:YES FASTING: YES GLUCOSE 93 65-99 mg/dL Fasting reference interval UREA NITROGEN (BUN) 21 7-25 mg/dL CREATININE 0.94 0.70-1.35 mg/dL EGFR 90 > OR = 60 mL/min/1.73m2 BUN/CREATININE RATIO SEE NOTE: 6-22 (calc) Not Reported: BUN and Creatinine are within reference range. SODIUM 135 135-146 mmol/L POTASSIUM 4.2 3.5-5.3 mmol/L CHLORIDE 101 98-110 mmol/L CARBON DIOXIDE 28 20-32 mmol/L CALCIUM 9.1 8.6-10.3 mg/dL PROTEIN, TOTAL 6.5 6.1-8.1 g/dL ALBUMIN 4.3 3.6-5.1 g/dL GLOBULIN 2.2 1.9-3.7 g/dL (calc) ALBUMIN/GLOBULIN RATIO 2.0 1.0-2.5 (calc) BILIRUBIN, TOTAL 0.5 0.2-1.2 mg/dL ALKALINE PHOSPHATASE 51 35-144 U/L AST 18 10-35 U/L ALT 17 9-46 U/L CBC (INCLUDES DIFF/PLT) Reviewed date:02/17/2025 10:08:35 AM Interpretation: Performing Lab:RICHARD2, [facility] Elliott Allen Notes/Report: FASTING:YES FASTING: YES WHITE BLOOD CELL COUNT 5.0 3.8-10.8 Thousand/ uL RED BLOOD CELL COUNT 5.10 4.20-5.80 Million/uL HEMOGLOBIN 14.7 13.2-17.1 g/dL HEMATOCRIT 45.3 38.5-50.0 % MCV 88.8 80.0-100.0 fL MCH 28.8 27.0-33.0 pg MCHC 32.5 32.0-36.0 g/dL For adults, a slight decrease in the calculated MCHC value (in the range of 30 to 32 g/dL) is most likely not clinically significant; however, it should be interpreted with caution in correlation with other red cell parameters and the patient's clinical condition. RDW 13.4 11.0-15.0 % PLATELET COUNT 165 140-400 Thousand/uL MPV 11.5 7.5-12.5 fL ABSOLUTE NEUTROPHILS 2685 0910-5258 cells/uL ABSOLUTE LYMPHOCYTES 9494 720-8536 cells/uL ABSOLUTE MONOCYTES 500 200-950 cells/uL ABSOLUTE EOSINOPHILS 140 15-500 cells/uL ABSOLUTE BASOPHILS 30 0-200 cells/uL NEUTROPHILS 53.7 LYMPHOCYTES 32.9 MONOCYTES 10.0 EOSINOPHILS 2.8 BASOPHILS 0.6 URINALYSIS, COMPLETE Reviewed date:02/17/2025 10:08:35 AM Interpretation: Performing Lab:NL2, [facility] [address] [place], [place] [id number] Elliott Allen Notes/Report: FASTING:YES FASTING: YES COLOR YELLOW YELLOW APPEARANCE CLEAR CLEAR SPECIFIC GRAVITY 1.009 1.001-1.035 PH 6.0 5.0-8.0 GLUCOSE NEGATIVE NEGATIVE BILIRUBIN NEGATIVE NEGATIVE KETONES NEGATIVE NEGATIVE OCCULT BLOOD NEGATIVE NEGATIVE PROTEIN NEGATIVE NEGATIVE NITRITE NEGATIVE NEGATIVE LEUKOCYTE ESTERASE NEGATIVE NEGATIVE WBC NONE SEEN < OR = 5 /HPF RBC NONE SEEN < OR = 2 /HPF SQUAMOUS EPITHELIAL CELLS NONE SEEN < OR = 5 /HPF BACTERIA NONE SEEN NONE SEEN /HPF HYALINE CAST NONE SEEN NONE SEEN /LPF NOTE This urine was analyzed for the presence of WBC, RBC, bacteria, casts, and other formed elements. Only those elements seen were reported. Uric Acid-[id number] Reviewed date:07/16/2024 08:16:35 AM Interpretation: Performing Lab:[facility], [address] [facility], Phone - [phone], Director - Christiano Notes/Report: Uric Acid 4.0 3.8-8.4 mg/dL Therapeutic ta rget for gout patients: <6.0 Urinalysis, Routine-[id number] Reviewed date:07/16/2024 08:16:35 AM Interpretation: Performing Lab:[facility], [address] [facility], Phone - [phone], Director - MDJodry Notes/Report: Specific [place] 1.006 1.005-1.030 pH 7.0 5.0-7.5 Urine-Color Yellow Yellow Appearance Clear Clear WBC Esterase Negative Negative Protein Negative Negative/Trace Glucose Negative Negative Ketones Negative Negative Occult Blood Negative Negative Bilirubin Negative Negative Urobilinogen,Semi-Qn 0.2 0.2-1.0 mg/dL Nitrite, Urine Negative Negative Microscopic Examination Micr oscopic not indicated and not performed. CBC With Differential/Platel et-[id number] Reviewed date:07/16/2024 08:16:35 AM Interpretation: Performing Lab:[facility] [place], [address] [facility], [place], Phone - [phone], Director - Christiano Notes/Report: WBC 4.4 3.4-10.8 x10E3/uL RBC 5.06 4.14-5.80 x10E6/uL Hemoglobin 14.6 13.0-17.7 g/dL Hematocrit 45.6 37.5-51.0 % MCV 90 79-97 fL MCH 28.9 26.6-33.0 pg MCHC 32.0 31.5-35.7 g/dL RDW 13.5 11.6-15.4 % Platelets 168 150-450 x10E3/uL Neutrophils 65 Not Estab. % Lymphs 24 Not Estab. % Monocytes 8 Not Estab. % Eos 2 Not Estab. % Basos 1 Not Estab. % Immature Cells Neutrophils (Absolute) 2.9 1.4-7.0 x10E3/uL Lymphs (Absolute) 1.0 0.7-3.1 x10E3/uL Monocytes(Absolute) 0.3 0.1-0.9 x10E3/uL Eos (Absolute) 0.1 0.0-0.4 x10E3/uL Baso (Absolute) 0.0 0.0-0.2 x10E3/uL Immature Granulocytes 0 Not Estab. % Immature Grans (Abs) 0.0 0.0-0.1 x10E3/uL NR Hematology Comments: Lipid Panel-[id number] Reviewed date:07/16/2024 08:16:35 AM Interpretation: Performing Lab:[facility] [place], [address] [facility], [place], Phone - [phone], Director - Christiano Notes/Report: Cholesterol, Total 153 100-199 mg/dL Triglycerides 83 0-149 mg/dL HDL Cholesterol 61 >39 mg/dL VLDL Cholesterol Kash 16 5-40 mg/dL LDL Chol Calc ([facility]) 76 0-99 mg/dL LDL Calc Comment: Comp. Metabolic Panel ([id number] Reviewed date:07/16/2024 08:16:35 AM Interpretation: Performing Lab:[facility] [place], [address], [place], Phone - [phone], Director - Christiano Notes/Report: Glucose 94 70-99 mg/dL BUN 14 8-27 mg/dL Creatinine 1.04 0.76-1.27 mg/dL eGFR 80 >59 mL/min/1.73 BUN/Creatinine Ratio 13 10-24 Sodium 140 134-144 mmol/L Potassium 4.7 3.5-5.2 mmol/L Chloride 103 96-106 mmol/L Carbon Dioxide, Total 24 20-29 mmol/L Calcium 9.3 8.6-10.2 mg/dL Protein, Total 6.6 6.0-8.5 g/dL Albumin 4.4 3.9-4.9 g/dL Globulin, Total 2.2 1.5-4.5 g/dL Bilirubin, Total 0.4 0.0-1.2 mg/dL Alkaline Phosphatase 67 44-121 IU/L AST (SGOT) 23 0-40 IU/L ALT (SGPT) 16 0-44 IU/L REASON FOR REFERRAL No Information MEDICATIONS Medication SIG (Take, Route, Frequency, Duration) Notes Start Date End Date Status Multivitamin Active CoQ10 100 MG as directed Orally Active Rosuvastatin Calcium 5 MG 1 tablet Orall y every other day for 90 days Active Finasteride 5 MG 1 tablet Orally Once a day Active IMMUNIZATIONS Vaccine Route Administration Date Status Comme nts influenza IM Intramuscular 08/21/2023 Administered SOCIAL HISTORY Tobacco Use: Social History Observation Description Date Details (start date - stop date) Never Smoker NA - NA Sex Assigned At : Social History Observation Description Sex Assigned At Unknown Tobacco Use/Smoking Question Answer Notes Are you a nonsmoker Section Notes: Tobacco: None Alcohol: Socially Marijuana: None Tobacco: None Alcohol: Socially Marijuana: None Tobacco: None Alcohol: Socially Marijuana: None Tobacco: None Alcohol: Socially Marijuana: None Tobacco: None Alcohol: Socially Marijuana: None Tobacco: None Alcohol: Socially Marijuana: None PROBLEMS Problem Type ICD Code Onset Dates Problem Status W/U Status Risk SNOMED Code Notes Problem Vitamin D deficiency, unspecified (E55.9) Active confirmed 57004219 Problem Mixed hyperlipidemia (E78.2) Active confirmed 041749304 Problem Gout, unspecified (M10.9) Active confirmed Gout (03209782) Problem Encounter for general adult medical examination without abnormal findings (Z00.00) Active confirmed 144743338 Problem Encounter for screening for malignant neoplasm of prostate (Z12.5) Active confirmed 338601790 Problem Encounter for screening for diabetes mellitus (Z13.1) Active confirmed 512276434 Problem Encounter for screening for other suspected endocrine disorder (Z13.29) Active confirmed 165664931 Problem Annual physical exam (Z00.00) Active confirmed 424404853 Problem Overweight (BMI 25.0-29.9) (E66.3) Active confirmed 697936410 Problem Elevated lipids (E78.5) Active confirmed Elevated fasting lipid profile (727720588693 ) Problem Lipid screening (Z13.220) Active confirmed 591910008 Problem BPH without urinary obstruction (N40.0) Active confirmed 626441520 VITAL SIGNS Heart Rate 64 /min 02/18/2025 Blood pressure diastolic 74 mm Hg 02/18/2025 Oximetry 96 % 02/18/2025 Height 71 in 02/18/2025 Blood pressure systolic 112 mm Hg 02/18/2025 Weight 207.4 lbs 02/18/2025 BMI 28.92 kg/m2 02/18/2025 Encounters Encounter Location Date Provider Diagnosis [facility] [address] [place] [address] 07/20/2024 ETHEL HERMOSILLO Elevated lipids E78. 5 and Benign prostatic hyperplasia without lower urinary tract symptoms N40.0 [facility] [address] [place] [address] 02/18/2025 TYRON GRACE Mixed hyperlipidemia E78.2 ; BPH without urinary obstruction N40.0 and Overweight (BMI 25.0-29.9) E66.3 [facility] [address] [address] 07/10/2024 ETHEL HERMOSILLO ASSESSMENTS Encounter Date Diagnosis Assessment Notes Treatment [...] Dictation was accomplished with the use of Birdback voice recognition software, prone to medical misidentifications and grammatical errors. This is unintentional and the practitioner does try to identify and correct these, but some could still be present. Please do not hesitate to contact practitioner for clarification. 07/20/2024 Elevated lipids (ICD-10 - E78.5) German [...] continue finasteride and follow up with urology 02/18/2025 BPH without urinary obstruction (ICD-10 - [...] Dictation was accomplished with the use of [employer] voice recognition software, prone to medical misidentifications and grammatical errors. This is unintentional and the practitioner does try to identify and correct these, but some could still be present. Please do not hesitate to contact practitioner for clarification. 07/20/2024 Benign prostatic hyperplasia without lower urinary [...] continue finasteride and follow up with urology 02/18/2025 Overweight (BMI 25.0-29.9) (ICD-10 - E66.3) [...] Dictation was accomplished with the use of [employer] voice recognition software, prone to medical misidentifications and grammatical errors. This is unintentional and the practitioner does try to identify and correct these, but some could still be present. Please do not hesitate to contact practitioner for clarification. PLAN OF TREATMENT Pending Test Test Name Order Date EKG 04/18/2022 LIPID PANEL, STANDARD 07/20/2024 LIPID PANEL, STANDARD 02/18/2025 LIPID PANEL, STANDARD 01/15/2024 COMPREHENSIVE METABOLIC PANEL 01/15/2024 COMPREHENSIVE METABOLIC PANEL 02/18/2025 COMPREHENSIVE METABOLIC PANEL 07/20/2024 URIC ACID 01/15/2024 CBC (INCLUDES DIFF/PLT) 01/15/2024 CBC (INCLUDES DIFF/PLT) 02/18/2025 CBC (INCLUDES DIFF/PLT) 07/20/2024 URINALYSIS, COMPLETE 07/20/2024 URINALYSIS, COMPLETE 07/23/2022 URINALYSIS, COMPLETE 01/15/2024 HEMOGLOBIN A1c 02/18/2025 PSA (FREE AND TOTAL) 02/18/2025 VITAMIN D,25-OH,TOTAL,IA 02/18/2025 TSH+T4F+T3Free 02/18/2025 Next Appt Details Provider Name:TYRON EDWARDS, 08/19/2025 08:15:00 AM, [address], [place], [address], Insurance Providers Payer Name Payer Address Payer Phone Subscriber Number Group Number Insured Name Patient Relationship to Insured Coverage Start Date Coverage End Date [facility] [address] [place] [address] [id number] German Young Self - patient is the insured MEDICAL (GENERAL) HISTORY Medical History History ICD Code seasonal allergies Hyperlipidemia BPH
[2025-03-08 18:30] LABS: Prostate Specific Antigen 3.54 ng/mL (<0.05-4.0)
== END 2025-03-08 14:35 | disposition home or self-care (01) ==
LOC: HO.LAB 14:34
PROVIDERS: PCP Internal Medicine; Visit Provider Urology
DX: R97.20 Elevated prostate specific antigen [PSA] (principal); Z12.5 Encounter for screening for malignant neoplasm of prostate
CPT/HCPCS: 36415; 84153

== ENCOUNTER 2025-03-16 11:32 | Outpatient (AMB) | payer OTHER, SELFPAY ==
--- NOTE | 2025-03-16 11:33 | MHC.OFFVIS ---
Intake Visit Reasons: 6m/PSA Intake Note: pt here today for: 6M/PSA uro meds:Finasteride 5mg allergies:none blood thinner: None Marketing Strategy Manager Required: No Allergies No Known Allergies Allergy (Verified 03/16/25 12:00) HPI Comments Details: German a very pleasant male. He is a patient of Dr. Hermosillo. 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 02/25 2.0, 08/27 2.0, 03/28 3.5 Current therapy finasteride - every other day - minimal libido impact - 05/24 urine DNA test regarding risk for prostate cancer came back equivocal Erectile dysfunction: He presents today for for continued evaluation and management of erectile dysfunction. Symptoms have been present for/since gradual during 2017. Current treatment includes Viagra/sildenafil. Treatment side effects include none. Prior therapies include oral medications. At this time he experiences erections 07/22 are partial and adequate for vaginal penetration, that last until ejaculation, YOSVANY 12-16 Mild-Moderate ED. Nocturnal erections do occur. Currently they are in a stable relationship. Overall he is satisfied with the current management. Therapeutic plan includes increasing dose of oral medication. [facility] Medical History Elevated PSA Prostatitis BPH (benign prostatic hyperplasia) Surgical History History of vasectomy Review of Systems Const Denies chills and Denies fever(s) Card Reports no additional complaints and Denies syncope Resp Denies cough GI Denies abdominal pain and Denies heartburn Reports as per HPI and Denies change in libido Neuro Denies syncope Psych Denies change in libido Endo Denies change in libido Physical Exam Const General: cooperative, healthy appearing, comfortable and no acute distress Orientation/consciousness: patient oriented x3 HEENT Face and sinus: Yes normal facial exam Mouth: moist mucous membranes Neck Neck: Yes normal visual inspection, Yes full ROM and Yes trachea midline Chest Chest palpation & inspection: normal inspection of the chest Resp Effort & Inspection: normal respiratory effort, able to speak in complete sentences and no respiratory distress GI Inspection: Yes normal to inspection Back/Spine/Pelvis Cervical Spine: normal cervical lordosis Thoracic/Lumbar Spine: thoracic and lumbar spine normal to inspection Skin General skin exam: no rashes or lesions noted Neuro General: patient oriented x3, gait normal, tone normal and moves all extremities Extrem General: Yes normal to inspection and Yes capillary refill normal Assessment & Plan Assessment & Plan (1) BPH w urinary obs/LUTS: Code(s): N40.1 - Benign prostatic hyperplasia with lower urinary tract symptoms; N13.8 - Other obstructive and reflux uropathy Category: Medical (2) Elevated PSA: Code(s): R97.20 - Elevated prostate specific antigen [PSA] Category: Medical (3) Erectile dysfunction: Code(s): N52.9 - Male erectile dysfunction, unspecified Category: Medical Plan Prostate MRI Orders: Orders MR Prostate wo/w con 03/16/25 R97.20 - Elevated prostate specific antigen [PSA] Patient Instructions: This note is constructed using voice recognition software. 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 Imaging studies, laboratory and physical exam results were discussed and reviewed in detail. No major barriers to patient understanding were identified. An opportunity to ask questions regarding the treatment plan was provided. All questions were answered. The patient expressed understanding and agreement with the above treatment plan. The patient is aware they should contact our office by phone for worsening of their current condition or the appearance of new urologic symptoms. Compliance is encouraged with any medications and followup testing that is ordered. It is a privilege to participate in the urologic care of your patient. If you have any questions or concerns regarding treatment for the above conditions, or other urologic issues, please do not hesitate to contact me. The office telephone contact is [phone]. Sincerely, Dr Johan Tovar MD, [facility] - Urology Compassionate Specialist Care for the Genitourinary System Coding Level of Care Code Est Pt Level 3 (24393) Complex EM visit Add On G2211 Diagnoses BPH w urinary obs/LUTS N40.1; N13.8 Elevated PSA R97.20 Erectile dysfunction N52.9
--- OUTSIDE RECORDS SUMMARY | 2025-03-16 13:01 | XMS_ITS ---
Author Organization [facility] Address [address] [place] [address] Care Team Providers Care Nip Wrapper Name Role Phone ETHEL HERMOSILLO Unavailable [phone] TYRON EDWARDS Unavailable [phone] ALLERGIES No Known Allergies REASON FOR VISIT [...] BPH without urinary obstruction (N40.0) Active confirmed [id number] Problem Overweight (BMI 25.0-29.9) (E66.3) Active confirmed 310989613 VITAL SIGNS Blood pressure systolic 112 mm Hg 02/19/20 25 Blood pressure diastolic 74 mm Hg 025 Heart Rate 64 /min 02/18/2025 Height 71 in 02/18/2025 Weight 207.4 lbs 02/18/2025 BMI 28.92 kg/m2 02/18/2025 Oximetry 96 % 02/18/2025 Encounters Encounter Location Date Provider Diagnosis [facility] [address] [place] [address] 02/18/2025 TYRON EDWARDS Mixed hyperlipidemia E78.2 ; [...] Dictation was accomplished with the use of [employer] voice recognition software, prone to medical misidentifications [...] Dictation was accomplished with the use of [employer] voice recognition software, prone to medical misidentifications [...] Dictation was accomplished with the use of [employer] voice recognition software, prone to medical misidentifications [...] EDWARDS, 08/19/2025 08:15:00 AM, [address], [place], [address], Progress Notes * German YOUNGDOB: 0 (65 yo M)Acc No.[id number]:02/18/2025 Progress Notes Patient:??German YOUNG Provider:??TYRON EDWARDS PA-C :1960?Age:65 Y?Sex:Ma le Date:02/18/2025 Address:[address] [place], [place] [id number] Subjective: * Chief Complaints: * ?1. Pt [...] Dictation was accomplished with the use of [employer] voice recognition software, prone to medical misidentifications [...] * Images: Billing Information: * Visit Code:?? 01104 Office Visit, Est Pt., Level 4. Modifiers: [...]
--- OUTSIDE RECORDS SUMMARY | 2025-03-16 13:02 | XMS_ITS ---
Author Organization [facility] [place] [address] Care Team Providers Care Equipment Manager Name Role Phone BLANCHARDETHEL MADRIGAL Unavailable [phone] Encounters Encounter Location Date Provider Diagnosis [facility] [address] [facility] [address] [place] [address] 07/10/2024 ETHEL BLANCHARD PLAN OF TREATMENT Next Appt Details Provider Name:TYRON EDWARDS, 08/19/2025 08:15:00 AM, [address], [place], [address], Progress Notes * German YOUNGDOB: 0 (64 yo M)Acc No.[id number]:07/10/2024 Patient:??German YOUNG :1960?Age:64 Y?Sex:Gregorio minh Address:[address] [place] [address] * true * Date:??
--- OUTSIDE RECORDS SUMMARY | 2025-03-16 13:02 | XMS_ITS | Patient Health Record ---
Author Organization [facility] Address [address] [place] [address] Care Team Providers Care Locks Inspector Name Role Phone ETHEL HERMOSILLO Unavailable [phone] TYRON EDWARDS Unavailable [phone] ALLERGIES No Known Allergies RESULTS Component Value Reference Range Notes LIPID PANEL, STANDARD Reviewed date:02/17/2025 10:08:46 AM Interpretation: Performing Lab:NL2, [address] [facility] [address] [place], [place] [id number] Elliott Allen Notes/Report: FASTING: YES FASTING:YES CHOLESTEROL, [...] LDL-C. Manuel GOYAL et al. RACHEL. 2013;310(19): 0502-8072 (http://education.SafedoX.Quantifeed/faq/TPK008) CHOL/HDLC RATIO 2.4 <5.0 (calc) NON HDL CHOLESTEROL 91 <130 mg/dL (calc) For patients with diabetes plus 1 major ASCVD risk factor, treating to a non-HDL-C goal of <100 mg/dL (LDL-C of <70 mg/dL) is considered a therapeutic option. COMPREHENSIVE METABOLIC PANE L Reviewed date:02/17/2025 10:08:35 AM Interpretation: Performing Lab:[address] [facility] Elliott Allen Notes/Report: FASTING:YES FASTING: YES [...] Reviewed date:02/17/2025 10:08:35 AM Interpretation: Performing Lab:RICHARD2, [address] [facility] Elliott Allen Notes/Report: FASTING:YES FASTING: YES [...] MPV 11.5 7.5-12.5 fL ABSOLUTE NEUTROPHILS 2685 4139-2208 cells/uL ABSOLUTE LYMPHOCYTES 7797 018-8010 cells/uL ABSOLUTE MONOCYTES 500 200-950 cells/uL ABSOLUTE EOSINOPHILS 140 15-500 cells/uL ABSOLUTE BASOPHILS 30 0-200 cells/uL NEUTROPHILS 53.7 LYMPHOCYTES 32.9 MONOCYTES 10.0 EOSINOPHILS 2.8 BASOPHILS 0.6 URINALYSIS, COMPLETE Reviewed date:02/17/2025 10:08:35 AM Interpretation: Performing Lab:NL2, [address] [facility] [address] [place], [place] [address] Elliott Allen Notes/Report: FASTING:YES FASTING: YES COLOR [...] Only those elements seen were reported. Uric Acid-[id number] Reviewed date:07/16/2024 08:16:35 AM Interpretation: Performing Lab:[facility], [address] [facility], Phone - [phone], Director - Christiano Notes/Report: Uric Acid 4.0 3.8-8.4 mg/dL Therapeutic ta rget for gout patients: <6.0 Urinalysis, Routine-[id number] Reviewed date:07/16/2024 08:16:35 AM Interpretation: Performing Lab:[facility], [address] [facility], Phone - [phone], Director - MDJodry Notes/Report: Specific [place] 1.006 1.005-1.030 pH 7.0 5.0-7.5 Urine-Color Yellow Yellow Appearance Clear Clear WBC Esterase Negative Negative Protein Negative Negative/Trace Glucose Negative Negative Ketones Negative Negative Occult Blood Negative Negative Bilirubin Negative Negative Urobilinogen,Semi-Qn 0.2 0.2-1.0 mg/dL Nitrite, Urine Negative Negative Microscopic Examination Micr oscopic not indicated and not performed. CBC With Differential/Platel et-[id number] Reviewed date:07/16/2024 08:16:35 AM Interpretation: Performing Lab:[facility] [place], [address] [facility] [place], Phone - [phone], Director - Christiano Notes/Report: WBC 4.4 3.4-10.8 [...] 0.0 0.0-0.1 x10E3/uL NR Hematology Comments: Lipid Panel-[id number] Reviewed date:07/16/2024 08:16:35 AM Interpretation: Performing Lab:[facility] [place], [address] [facility] [place], Phone - [phone], Director - Christiano Notes/Report: Cholesterol, Total 153 100-199 mg/dL Triglycerides 83 0-149 mg/dL HDL Cholesterol 61 >39 mg/dL VLDL Cholesterol Kash 16 5-40 mg/dL LDL Chol Calc ([facility]) 76 0-99 mg/dL LDL Calc Comment: Comp. Metabolic Panel (14)-3 [id number] Reviewed date:07/16/2024 08:16:35 AM Interpretation: Performing Lab:[facility] [place], [address], [place], Phone - [phone], Director - Christiano Notes/Report: Glucose 94 70-99 [...] Vitamin D deficiency, unspecified (E55.9) Active confirmed 49756353 Problem Mixed hyperlipidemia (E78.2) Active confirmed 750006980 Problem Gout, unspecified (M10.9) Active confirmed Gout (75191516) Problem Encounter for general adult medical examination without abnormal findings (Z00.00) Active confirmed 801307668 Problem Encounter for screening for malignant neoplasm of prostate (Z12.5) Active confirmed 326904139 Problem Encounter for screening for diabetes mellitus (Z13.1) Active confirmed 359752793 Problem Encounter for screening for other suspected endocrine disorder (Z13.29) Active confirmed 799627983 Problem Annual physical exam (Z00.00) Active confirmed 072936077 Problem Overweight (BMI 25.0-29.9) (E66.3) Active confirmed 463314179 Problem Elevated lipids (E78.5) Active confirmed Elevated fasting lipid profile (590067826657 ) Problem Lipid screening (Z13.220) Active confirmed 528355519 Problem BPH without urinary obstruction (N40.0) Active confirmed 798203969 VITAL SIGNS Heart Rate 64 /min 02/18/2025 Oximetry 96 % 02/18/2025 Blood pressure diastolic 74 mm Hg 02/18/2025 Height 71 in 02/18/2025 Blood pressure systolic 112 mm Hg 02/18/2025 Weight 207.4 lbs 02/18/2025 BMI 28.92 kg/m2 02/18/2025 Encounters Encounter Location Date Provider Diagnosis [facility] [address] [place] [address] 07/20/2024 ETHEL HERMOSILLO Elevated lipids E78. 5 and Benign prostatic hyperplasia without lower urinary tract symptoms N40.0 [facility] [address] [place] [address] 02/18/2025 TYRON GRACE Mixed hyperlipidemia E78.2 ; BPH without urinary obstruction N40.0 and Overweight (BMI 25.0-29.9) E66.3 [facility] [address] [address] 07/10/2024 ETHEL HERMOSILLO ASSESSMENTS Encounter Date Diagnosis Assessment Notes Treatment Notes Treatment Clinical Notes Section Notes 02/18/2025 BPH without urinary obstruction (ICD-10 - [...] Dictation was accomplished with the use of [employer] voice recognition software, prone to medical [...] finasteride and follow up with urology 02/18/2025 Mixed hyperlipidemia (ICD-10 - E78.2) German [...] Dictation was accomplished with the use of [employer] voice recognition software, prone to medical [...] Dictation was accomplished with the use of [employer] voice recognition software, prone to medical [...] Order Date EKG 04/18/2022 LIPID PANEL, STANDARD 01/15/2024 LIPID PANEL, STANDARD 02/18/2025 LIPID PANEL, STANDARD 07/20/2024 COMPREHENSIVE METABOLIC PANEL 07/20/2024 COMPREHENSIVE METABOLIC PANEL 02/18/2025 COMPREHENSIVE METABOLIC PANEL 01/15/2024 URIC ACID 01/15/2024 CBC (INCLUDES DIFF/PLT) 01/15/2024 CBC (INCLUDES DIFF/PLT) 02/18/2025 CBC (INCLUDES DIFF/PLT) 07/20/2024 URINALYSIS, COMPLETE 07/20/2024 URINALYSIS, COMPLETE 07/23/2022 URINALYSIS, COMPLETE 01/15/2024 HEMOGLOBIN A1c 02/18/2025 PSA (FREE AND TOTAL) 02/18/2025 VITAMIN D,25-OH,TOTAL,IA 02/18/2025 TSH+T4F+T3Free 02/18/2025 Next Appt Details Provider Name:TYRON EDWARDS, 08/19/2025 08:15:00 AM, [address], [place], [address], Insurance Providers Payer Name Payer Address Payer Phone Subscriber Number Group Number Insured Name Patient Relationship to Insured Coverage Start Date Coverage End Date [facility] [address] [place] [address] [id number] German Young Self - patient is the insured MEDICAL (GENERAL) HISTORY Medical History History ICD Code seasonal allergies Hyperlipidemia BPH
--- OUTSIDE RECORDS SUMMARY | 2025-03-16 13:02 | XMS_ITS ---
Author Organization [facility] Address [address] [place] [address] Care Team Providers Care Disabilities Services Officer Name Role Phone JENSEN HERMOSILLO Unavailable [phone] ALLERGIES No Known Allergies REASON FOR VISIT [...] 07/20/2024 Encounters Encounter Location Date Provider Diagnosis [facility] [address] [place] [address] 07/20/2024 AZEBKARON FERNÁNDEZAN Elevated lipids E78. 5 [...] EDWARDS, 08/19/2025 08:15:00 AM, [address], [place], [address], Progress Notes * German YOUNGDOB: 0 (64 yo M)Acc No.[id number]:07/20/2024 Progress Notes Patient:??German YOUNG Provider:??Jensen Hermosillo MD :1960?Age:64 Y?Sex:Gregorio wilkinson Date:07/20/2024 Address: [place] [address] [id number] Subjective: * Chief Complaints: * ?1. Pt [...] * Images: Billing Information: * Visit Code:?? 85922 Office Visit, Est Pt., Level 4. * [...] VLDL Cholesterol Kash 16, LDL Chol Calc ([facility]) 76 Influenza: due COVID: due, declines Shingrix: [...]
== END 2025-03-16 12:49 | disposition home or self-care (01) ==
LOC: HO.HUSH 11:32
PROVIDERS: PCP Internal Medicine; Visit Provider Urology
DX: N40.1 Benign prostatic hyperplasia with lower urinary tract symptoms (principal); N13.8 Other obstructive and reflux uropathy; R97.20 Elevated prostate specific antigen [PSA]; N52.9 Male erectile dysfunction, unspecified
CPT/HCPCS: 99213

== ENCOUNTER → 2025-03-16 11:32 | Outpatient (BNVA) | payer OTHER, SELFPAY | PROVIDERS: PCP Internal Medicine; Visit Provider Urology ==

== ENCOUNTER → 2025-05-27 08:19 | Outpatient (BNV) | payer OTHER, SELFPAY | PROVIDERS: Visit Provider Radiology Diagnostic Radiology | DX: R97.20 Elevated prostate specific antigen [PSA] (principal) | CPT/HCPCS: 72197 ==

== ENCOUNTER 2025-05-27 08:35 | Outpatient (REF) | payer OTHER, SELFPAY ==
--- NOTE | ~2025-05-27 | MR_ITS ---
EXAMINATION: MR PROSTATE WITHOUT THEN WITH IV CONTRAST HISTORY: R97.20 - Elevated prostate specific antigen [PSA] TECHNIQUE: 1.5T body coil survey of the pelvis was performed. Phase array coil imaging of the prostate was performed in multiplanar high resolution axial, coronal, sagittal fast spin echo T2 and axial T1 weighted imaging sequences. Axial diffusion imaging at intermediate and high field performed with ADC mapping. Next, 9 mL Gadavist was given by intravenous infusion, and dynamic axial imaging performed. 3-D reconstructions and post-processing were performed on an independent workstation by the radiologist for biopsy planning using image fusion. COMPARISON: There are no prior studies available for comparison. CLINICAL DATA: Most recent PSA: 3.54 ng/[place] [address]. PSA Density: 0.103 ng/mL squared Prostate Biopsy: None reported. FINDINGS: Prostate size: 4.4 x 4.7 x 3.2 cm. Calculated prostate volume is 34.4 mL. Hemorrhage: None. Transitional Zone: There is moderate heterogeneous nodular hypertrophy of the transitional zone. Peripheral Zone: Diffusion weighted images are markedly degraded by gas in the rectum. There is an area of interest in the peripheral zone with imaging characteristics as follows: Area of interest #1: Location: Left posterolateral peripheral zone at the apex (series 7, images 21-22), measuring approximately 10 mm in size: DWI PI-RADS v2.1 score: n/a T2 PI-RADS v2.1 score: 4 DCE PI-RADS v2.1 score: + Overall PI-RADS v2.1 score: 4 Capsular contact: no Extracapsular extension: None Seminal vesicle invasion: None Neurovascular bundle involvement: None Seminal Vesicles/Ejaculatory Ducts: Symmetric and normal in signal and caliber. Pelvic Lymph Nodes: No obturator or internal iliac lymph nodes meeting size criteria for adenopathy. Marrow Signal: Normal marrow signal and enhancement without focal lesion identified. MR/MR Prostate wo/w con IMPRESSION: Focus of abnormal signal intensity in the left posterolateral peripheral zone at the apex, suspicious for clinically significant prostate carcinoma. PI-RADS 4: High (clinically significant cancer is likely to be present) PI-RADS Assessment Categories PI-RADS 1: Very low (clinically significant cancer is highly unlikely to be present) PI-RADS 2: Low (clinically significant cancer is unlikely to be present) PI-RADS 3: Intermediate (the presence of clinically significant cancer is equivocal) PI-RADS 4: High (clinically significant cancer is likely to be present) PI-RADS 5: Very high (clinically significant cancer is highly likely to be present) [employer]. MR Prostate Imaging Reporting and Data System version 2.1. http://www.acr.org/Quality-Safety/Resources/PIRADS/ Electronically signed by: Luis Angel MD 05/27/2025 10:16 AM EDT
--- OUTSIDE RECORDS SUMMARY | 2025-05-27 08:56 | XMS_ITS | Patient Health Record ---
Author Organization [facility] [address] Address [address] [place] [address] Care Team Providers Care Membership Sales Representative Name Role Phone ETHEL HERMOSILLO Unavailable [phone] GRACETYRON Miller Unavailable [phone] Allergies No Known Allergies Results Component Value Reference Range Notes Comp. Metabolic Panel ([id number] Reviewed date:07/16/2024 08:16:35 AM Interpretation: Performing Lab:[facility], [employer] [facility], Phone - [phone], Director - Christiano Notes/Report: Glucose 94 70-99 [...] 0-40 IU/L ALT (SGPT) 16 0-44 IU/L Lipid Panel-[id number] Reviewed date:07/16/2024 08:16:35 AM Interpretation: Performing Lab:[facility], [address] [place] [address], Phone - [phone], Director - Jossyy Notes/Report: Cholesterol, Total 153 100-199 mg/dL Triglycerides 83 0-149 mg/dL HDL Cholesterol 61 >39 mg/dL VLDL Cholesterol Kash 16 5-40 mg/dL LDL Chol Calc ([facility]) 76 0-99 mg/dL CBC With Differential/Platel et-[id number] Reviewed date:07/16/2024 08:16:35 AM Interpretation: [facility], [address] [place] [address], Phone - [phone], Director - MDJustiney Notes/Report: WBC 4.4 3.4-10.8 x10E3/uL RBC 5.06 4.14-5.80 x10E6/uL Hemoglobin 14.6 13.0-17.7 g/dL Hematocrit 45.6 37.5-51.0 % MCV 90 79-97 fL MCH 28.9 26.6-33.0 pg MCHC 32.0 31.5-35.7 g/dL RDW 13.5 11.6-15.4 % Platelets 168 150-450 x10E3/uL Neutrophils 65 Not Estab. % Lymphs 24 Not Estab. % Monocytes 8 Not Estab. % Eos 2 Not Estab. % Basos 1 Not Estab. % Neutrophils (Absolute) 2.9 1.4-7.0 x10E3/uL Lymphs (Absolute) 1.0 0.7-3.1 x10E3/uL Monocytes(Absolute) 0.3 0.1-0.9 x10E3/uL Eos (Absolute) 0.1 0.0-0.4 x10E3/uL Baso (Absolute) 0.0 0.0-0.2 x10E3/uL Immature Granulocytes 0 Not Estab. % Immature Grans (Abs) 0.0 0.0-0.1 x10E3/uL Urinalysis, Routine-[id number] Reviewed date:07/16/2024 08:16:35 AM Interpretation: [facility]forming [facility], [address] [place] [address], Phone - [phone], Director - Jossyy Notes/Report: Specific Lennox 1.006 1.005-1.030 pH 7.0 5.0-7.5 Urine-Color Yellow Yellow Appearance Clear Clear WBC Esterase Negative Negative Protein Negative Negative/Trace Glucose Negative Negative Ketones Negative Negative Occult Blood Negative Negative Bilirubin Negative Negative Urobilinogen,Semi-Qn 0.2 0.2-1.0 mg/dL Nitrite, Urine Negative Negative Microscopic Examination Micr oscopic not indicated and not performed. Uric Acid-[id number] Reviewed date:07/16/2024 08:16:35 AM Interpretation: Performing Lab:[facility] [place], [address], [place], Phone - [phone], Director - Christiano Notes/Report: Uric Acid 4.0 3.8-8.4 mg/dL Therapeutic ta rget for gout patients: <6.0 URINALYSIS, COMPLETE Reviewed date:02/17/2025 10:08:35 AM Interpretation: Performing Lab:[facility], [facility] Elliott Allen Notes/Report: FASTING:YES FASTING: YES COLOR [...] elements. Only those elements seen were reported. CBC (INCLUDES DIFF/PLT) Reviewed date:02/17/2025 10:08:35 AM Interpretation: Performing Lab:[facility], [facility] Elliott Allen Notes/Report: FASTING:YES FASTING: YES [...] MPV 11.5 7.5-12.5 fL ABSOLUTE NEUTROPHILS [phone] cells/uL ABSOLUTE LYMPHOCYTES 8667 590-6845 cells/uL ABSOLUTE MONOCYTES 500 200-950 cells/uL ABSOLUTE EOSINOPHILS 140 15-500 cells/uL ABSOLUTE BASOPHILS 30 0-200 cells/uL NEUTROPHILS 53.7 LYMPHOCYTES 32.9 MONOCYTES 10.0 EOSINOPHILS 2.8 BASOPHILS 0.6 [address] METABOLIC PANE L Reviewed date:02/17/2025 10:08:35 AM Interpretation: Performing Lab:[facility], [facility] Elliott Allen Notes/Report: FASTING:YES FASTING: YES GLUCOSE [...] 18 10-35 U/L ALT 17 9-46 U/L LIPID PANEL, STANDARD Reviewed date:02/17/2025 10:08:46 AM Interpretation: Performing Lab:[facility], [facility] [employer] [facility] Elliott Allen Notes/Report: FASTING:YES FASTING: YES CHOLESTEROL, TOTAL 155 <200 mg/dL HDL CHOLESTEROL 64 > OR = 40 mg/dL TRIGLYCERIDES 59 <150 mg/dL LDL-CHOLESTEROL 77 Reference range: <100 Desirable range <100 mg/dL for primary prevention; <70 mg/dL for patients with CHD or diabetic patients with > or = 2 CHD risk factors. LDL-C is now calculated using the Donna calculation, which is a validated novel method providing better accuracy than the Friedewald equation in the estimation of LDL-C. Manuel GOYAL et al. RACHEL. 2013;310(19): 3455-5741 (http://education.[employer]/faq/PWR796) CHOL/HDLC RATIO 2.4 <5.0 (calc) NON HDL CHOLESTEROL 91 <130 mg/dL (calc) For patients with diabetes plus 1 major ASCVD risk factor, treating to a non-HDL-C goal of <100 mg/dL (LDL-C of <70 mg/dL) is considered a therapeutic option. Reason For Referral No Information Medications Medication SIG (Take, Route, Frequency, Duration) Notes Start Date End Date Status Multivitamin Active CoQ10 100 MG as directed Orally Active Rosuvastatin Calcium 5 MG 1 tablet Orall y every other day; Duration: 90 days Active Finasteride 5 MG 1 tablet Orally Once a day Active Immunizations Vaccine Route Administration Date Status Comme nts influenza IM Intramuscular 08/21/2023 Administered Social History Tobacco Use: Social History Observation Description Date Details (start date - stop date) Never Smoker NA - NA Tobacco Use/Smoking Question Answer Notes Are you a nonsmoker Section Notes: Tobacco: None Alcohol: Socially Marijuana: None Tobacco: None Alcohol: Socially Marijuana: None Tobacco: None Alcohol: Socially Marijuana: None Tobacco: None Alcohol: Socially Marijuana: None Tobacco: None Alcohol: Socially Marijuana: None Tobacco: None Alcohol: Socially Marijuana: None Problems Problem Type SNOMED Code ICD Code Onset Dates Problem Status W/U Status Risk Notes Problem Vitamin D deficiency (12390702) Vitamin D deficiency, unspecified (E55.9) Active confirmed Problem Mixed hyperlipidemia (725423018) Mixed hyperlipidemia (E78.2) Active confirmed Problem Gout (25970718) Gout, unspecifie d (M10.9) Active confirmed Problem Adult health examination (827804865) Encounter for general adult medical examination without abnormal findings (Z00.00) Active confirmed Problem Screening for malignant neoplasm of prostate (086834433) Encounter for screening for malignant neoplasm of prostate (Z12.5) Active confirmed Problem Diabetes mellitus screening (049601106) Encounter for screening for diabetes mellitus (Z13.1) Active confirmed Problem Endocrine/metabol ic screening (777689398) Encounter for screening for other suspected endocrine disorder (Z13.29) Active confirmed Problem Annual health maintenance examination (63996298) Annual physical exam (Z00.00) Active confirmed Problem Overweight (867512011) Overweight (BMI 25.0-29.9) (E66.3) Active confirmed Problem Elevated fasting lipid profile (574841850416) Elevated lipids (E78.5) Active confirmed Problem Lipid screening (872014624) Lipid screening (Z13.220) Active confirmed Problem Benign prostatic hypertrophy without outflow obstruction (640802073) BPH without urinary obstruction (N40.0) Active confirmed Vital Signs Heart Rate 64 /min 02/18/2025 Oximetry 96 % 02/18/2025 Blood pressure diastolic 74 mm Hg 02/18/2025 Height 71 in 02/18/2025 Blood pressure systolic 112 mm Hg 02/18/2025 Weight 207.4 lbs 02/18/2025 BMI 28.92 kg/m2 02/18/2025 Encounters Encounter Location Date Provider Diagnosis [facility] [address] [place] [address] 07/20/2024 TALKARON HERMOSILLO Elevated lipids E78. 5 and Benign prostatic hyperplasia without lower urinary tract symptoms N40.[address] [facility] [address] [place] [address] 02/18/2025 TYRON GRACE Mixed hyperlipidemia E78.2 ; BPH without urinary obstruction N40.0 and Overweight (BMI 25.0-29.9) E66.3 [facility] [address] [place] [address] 07/10/2024 TALAL HERMOSILLO [facility] [address] [place] [address] 03/18/2025 TYRON GRACE Assessments Encounter Date Diagnosis (ICD Code) Assessment Notes Treatment Notes Treatment Clinical Notes Section Notes 02/18/2025 Mixed hyperlipidemia (ICD-10 - E78.2) Kaykay is a 65-year-old male present today for [...] Dictation was accomplished with the use of [employer] voice recognition software, prone to medical misidentifications and grammatical errors. This is unintentional and the practitioner does try to identify and correct these, but some could still be present. Please do not hesitate to contact practitioner for clarification. 02/18/2025 BPH without urinary obstruction (ICD-10 - N40.0) Kaykay is a 65-year-old male present today for [...] Dictation was accomplished with the use of [employer] voice recognition software, prone to medical misidentifications and grammatical errors. This is unintentional and the practitioner does try to identify and correct these, but some could still be present. Please do not hesitate to contact practitioner for clarification. 07/20/2024 Elevated lipids (ICD-10 - E78.5) Kaykay is a well appearing 64 yr old [...] lower urinary tract symptoms (ICD-10 - N40.0) Kaykay is a well appearing 64 yr old [...] 02/18/2025 Overweight (BMI 25.0-29.9) (ICD-10 - E66.3) Kaykay is a 65-year-old male present today for [...] Dictation was accomplished with the use of [employer] voice recognition software, prone to medical misidentifications and grammatical errors. This is unintentional and the practitioner does try to identify and correct these, but some could still be present. Please do not hesitate to contact practitioner for clarification. Plan Of Treatment Pending Test Test Name Order Date EKG 04/18/2022 LIPID PANEL, STANDARD 02/18/2025 LIPID PANEL, STANDARD 01/15/2024 LIPID PANEL, STANDARD 07/20/2024 COMPREHENSIVE METABOLIC PANEL 07/20/2024 COMPREHENSIVE METABOLIC PANEL 01/15/2024 COMPREHENSIVE METABOLIC PANEL 02/18/2025 URIC ACID 01/15/2024 CBC (INCLUDES DIFF/PLT) 07/20/2024 CBC (INCLUDES DIFF/PLT) 01/15/2024 CBC (INCLUDES DIFF/PLT) 02/18/2025 URINALYSIS, COMPLETE 07/23/2022 URINALYSIS, COMPLETE 01/15/2024 URINALYSIS, COMPLETE 07/20/2024 HEMOGLOBIN A1c 02/18/2025 PSA (FREE AND TOTAL) 02/18/2025 VITAMIN D,25-OH,TOTAL,IA 02/18/2025 TSH+T4F+T3Free 02/18/2025 Next Appt Details Provider Name:TYRON SANCHEZUPA, 08/19/2025 08:15:00 AM, [address], [place], [address], Insurance Providers Payer Name Payer Address Payer Phone Subscriber Number Group Number Insured Name Patient Relationship to Insured Coverage Start Date Coverage End Date [facility] [address] [place] [address] [id number] Kaykay Young Self - patient is the insured Medical (General) History Medical History History ICD Code seasonal allergies Hyperlipidemia BPH
--- OUTSIDE RECORDS SUMMARY | 2025-05-27 08:56 | XMS_ITS ---
Author Name [facility] Organization Unknown Care Team Organization Name Specialty Phone Email Start Date End Da te [facility] 05/21/2024 4 [facility] 09/11/2022 4
== END 2025-05-27 08:36 | disposition home or self-care (01) ==
LOC: HO.MRI 08:35
PROVIDERS: Visit Provider Urology
DX: R97.20 Elevated prostate specific antigen [PSA] (principal)
CPT/HCPCS: 72197; 76377; A9585

== ENCOUNTER 2025-06-03 11:25 | Outpatient (AMB) | payer OTHER, SELFPAY ==
--- NOTE | 2025-06-03 11:25 | A.OFFVIS_ITS ---
Intake Visit Reasons: MRI F/U Intake Note: pt here today for follow up for BPH uro meds:Finasteride, sildenafil allergies:none blood thinner: None Imaging MRI 05/27/2025 Underwear Finisher Required: No Accompanied by: Self / Same As Patient Allergies No Known Allergies Allergy (Verified 06/03/25 11:26) HPI Comments Details: German a very pleasant male. He is a patient of Dr. Hermosillo. 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 02/25 2.0, 08/27 2.0, 03/28 3.5 Current therapy finasteride - every other day - minimal libido impact - 05/24 urine DNA test regarding risk for prostate cancer came back equivocal Erectile dysfunction: He presents today for for continued evaluation and management of erectile dysfunction. Symptoms have been present for/since gradual during 2017. Current treatment includes Viagra/sildenafil. Treatment side effects include none. Prior therapies include oral medications. At this time he experiences erections 07/22 are partial and adequate for vaginal penetration, that last until ejaculation, YOSVANY 12-16 Mild-Moderate ED. Nocturnal erections do occur. Currently they are in a stable relationship. Overall he is satisfied with the current management. Therapeutic plan includes increasing dose of oral medication. [facility] Medical History Elevated PSA Prostatitis BPH (benign prostatic hyperplasia) Surgical History History of vasectomy Review of Systems Const All systems reviewed & are unremarkable except as noted in HPI and below Reports no additional complaints Resp Reports no additional complaints GI Reports no additional complaints Reports as per HPI Musc Reports no additional complaints Physical Exam Telemedicine evaluation Appropriate responses Regular breathing rate and rhythm HEENT Head: Yes normal to inspection Ears: hearing grossly normal bilaterally Eyes General: appearance normal, both eyes and all related structures Neck Neck: Yes normal visual inspection Chest Chest palpation & inspection: normal inspection of the chest Resp Effort & Inspection: normal respiratory effort and able to speak in complete sentences Telehealth Telehealth Telehealth Platform: [employer] Location of provider rendering services: practice address Location of patient: address on file Patient Identification confirmed using: Name, : Yes Telehealth method: voice only Patient verbally consented to treatment: Yes Patient verbally consented to billing insurance company: Yes Patient informed of any privacy concerns related to visit: Yes Minutes spent on Phone/Video with Pt.: 15 Assessment & Plan Assessment & Plan (1) BPH w urinary obs/LUTS: Code(s): N40.1 - Benign prostatic hyperplasia with lower urinary tract symptoms; N13.8 - Other obstructive and reflux uropathy Category: Medical (2) Elevated PSA: Code(s): R97.20 - Elevated prostate specific antigen [PSA] Category: Medical Plan Risks, benefits and alternatives to therapy were discussed. These include but are not limited to infection, bleeding, damage to local organs and tissues, need for further interventions. Anesthetic risks regarding cardiac arrhythmia, blood clots, and potential mortality were discussed. The patient understands the typical recovery time and the outpatient nature of the procedure. After consideration of these risks the patient gives full informed consent and they wish to move ahead with the procedure. - plan for MRI ultrasound fusion biopsy Patient Instructions: This note is constructed using voice recognition software. While every effort has been made to ensure accuracy guard dance hall errors may have been included. Imaging studies, laboratory and physical exam results were discussed and reviewed in detail. No major barriers to patient understanding were identified. An opportunity to ask questions regarding the treatment plan was provided. All questions were answered. The patient expressed understanding and agreement with the above treatment plan. The patient is aware they should contact our office by phone for worsening of their current condition or the appearance of new urologic symptoms. Compliance is encouraged with any medications and followup testing that is ordered. It is a privilege to participate in the urologic care of your patient. If you have any questions or concerns regarding treatment for the above conditions, or other urologic issues, please do not hesitate to contact me. The office telephone contact is [phone]. Sincerely, Dr Johan Tovar MD, [facility] - Urology Compassionate Specialist Care for the Genitourinary System Coding Level of Care Code Tele Est Pt Level 4 (41596) Complex EM visit Add On G2211 Diagnoses BPH w urinary obs/LUTS N40.1; N13.8 Elevated PSA R97.20
--- OUTSIDE RECORDS SUMMARY | 2025-06-03 12:12 | XMS_ITS | Patient Health Record ---
Author Organization [facility] [address] Address [address] [place] [address] Care Team Providers Care Retanner Name Role Phone ETHEL HERMOSILLO Unavailable [phone] TYRON EDWARDS Unavailable [phone] Allergies No Known Allergies Results Component Value Reference Range Notes URINALYSIS, COMPLETE Reviewed date:02/17/2025 10:08:35 AM Interpretation: Performing Lab:NL2, [facility] Elliott Allen Notes/Report: FASTING:YES FASTING: YES [...] elements. Only those elements seen were reported. COMPREHENSIVE METABOLIC PANE L Reviewed date:02/17/2025 10:08:35 AM Interpretation: Performing Lab:NL2, [facility] Elliott Allen Notes/Report: FASTING:YES FASTING: YES [...] Reviewed date:02/17/2025 10:08:46 AM Interpretation: Performing Lab:NL2, [facility] [address] Elliott Allen Notes/Report: FASTING:YES FASTING: YES CHOLESTEROL, [...] LDL-C. Manuel GOYAL et al. RACHEL. 2013;310(19): 8372-1786 (http://education.[facility] [place].Whotever/faq/FWO516) CHOL/HDLC RATIO 2.4 <5.0 (calc) NON HDL CHOLESTEROL 91 <130 mg/dL (calc) For patients with diabetes plus 1 major ASCVD risk factor, treating to a non-HDL-C goal of <100 mg/dL (LDL-C of <70 mg/dL) is considered a therapeutic option. CBC (INCLUDES DIFF/PLT) Reviewed date:02/17/2025 10:08:35 AM Interpretation: Performing Lab:NL2, [facility] [address] [place], [place] [address] Elliott Allen Notes/Report: FASTING:YES FASTING: YES WHITE [...] MPV 11.5 7.5-12.5 fL ABSOLUTE NEUTROPHILS [phone] cells/uL ABSOLUTE LYMPHOCYTES 5772 178-3443 cells/uL ABSOLUTE MONOCYTES 500 200-950 cells/uL ABSOLUTE EOSINOPHILS 140 15-500 cells/uL ABSOLUTE BASOPHILS 30 0-200 cells/uL NEUTROPHILS 53.7 LYMPHOCYTES 32.9 MONOCYTES 10.0 EOSINOPHILS 2.8 BASOPHILS 0.6 Comp. Metabolic Panel (14)-3 78783 Reviewed date:07/16/2024 08:16:35 AM Interpretation: Performing Lab:[facility], [address] [place] [address], [place], Phone - [phone], Director - Christiano Notes/Report: Glucose 94 70-99 [...] IU/L ALT (SGPT) 16 0-44 IU/L Lipid Panel-[id number] Reviewed date:07/16/2024 08:16:35 AM Interpretation: Performing Lab:[facility] [place], Phone - [phone], Director - MDJodry Notes/Report: Cholesterol, Total 153 100-199 mg/dL Triglycerides 83 0-149 mg/dL HDL Cholesterol 61 >39 mg/dL VLDL Cholesterol Kash 16 5-40 mg/dL LDL Chol Calc (NIH) 76 0-99 mg/dL Urinalysis, Routine-[id number] Reviewed date:07/16/2024 08:16:35 AM Interpretation: Performing Lab:[facility] [place], Phone - [phone], Director - Jossyy Notes/Report: Specific [place] 1.006 1.005-1.030 pH 7.0 5.0-7.5 Urine-Color Yellow Yellow Appearance Clear Clear WBC Esterase Negative Negative Protein Negative Negative/Trace Glucose Negative Negative Ketones Negative Negative Occult Blood Negative Negative Bilirubin Negative Negative Urobilinogen,Semi-Qn 0.2 0.2-1.0 mg/dL Nitrite, Urine Negative Negative Microscopic Examination Micr oscopic not indicated and not performed. Uric Acid-[id number] Reviewed date:07/16/2024 08:16:35 AM Interpretation: Performing Lab:[facility] [place], Phone - [phone], Director - MDJodry Notes/Report: Uric Acid 4.0 3.8-8.4 mg/dL Therapeutic ta rget for gout patients: <6.0 CBC With Differential/Platel et-[id number] Reviewed date:07/16/2024 08:16:35 AM Interpretation: Performing Lab:[facility] [address] [place] [address], Phone - [phone], Director - Jeannedry Notes/Report: WBC 4.4 3.4-10.8 x10E3/uL RBC 5.06 [...] % Immature Grans (Abs) 0.0 0.0-0.1 x10E3/uL Reason For Referral No Information Medications Medication [...] Status Risk Notes Problem Vitamin D deficiency (89508802) Vitamin D deficiency, unspecified (E55.9) Active confirmed Problem Mixed hyperlipidemia (263636652) Mixed hyperlipidemia (E78.2) Active confirmed Problem Gout (64717803) Gout, unspecifie d (M10.9) Active confirmed Problem Adult health examination (256994799) Encounter for general adult medical examination without abnormal findings (Z00.00) Active confirmed Problem Screening for malignant neoplasm of prostate (122499184) Encounter for screening for malignant neoplasm of prostate (Z12.5) Active confirmed Problem Diabetes mellitus screening (166910672) Encounter for screening for diabetes mellitus (Z13.1) Active confirmed Problem Endocrine/metabol ic screening (299026280) Encounter for screening for other suspected endocrine disorder (Z13.29) Active confirmed Problem Annual health maintenance examination (11734025) Annual physical exam (Z00.00) Active confirmed Problem Overweight (394481639) Overweight (BMI 25.0-29.9) (E66.3) Active confirmed Problem Elevated fasting lipid profile (473087074789) Elevated lipids (E78.5) Active confirmed Problem Lipid screening (413523172) Lipid screening (Z13.220) Active confirmed Problem Benign prostatic hypertrophy without outflow obstruction (994459462) BPH without urinary obstruction (N40.0) Active confirmed Vital Signs Heart Rate 64 /min 02/18/2025 Oximetry 96 % 02/18/2025 Blood pressure diastolic 74 mm Hg 02/18/2025 Height 71 in 02/18/2025 Blood pressure systolic 112 mm Hg 02/18/2025 Weight 207.4 lbs 02/18/2025 BMI 28.92 kg/m2 02/18/2025 Encounters Encounter Location Date Provider Diagnosis [facility] [address] [place] [address] 07/20/2024 TALKARON HERMOSILLO Elevated lipids E78. 5 and Benign prostatic hyperplasia without lower urinary tract symptoms N40.[address] [place] [address] 02/18/2025 TYRONBRIAN EDWARDS Mixed hyperlipidemia E78.2 ; BPH without urinary obstruction N40.0 and Overweight (BMI 25.0-29.9) E66.[address] [address] [place] [address] 07/10/2024 TALAL HERMOSILLO [facility] [address] [place] [address] 03/18/2025 TYRONBRIAN EDWARDS Assessments Encounter Date Diagnosis (ICD Code) Assessment Notes Treatment Notes Treatment Clinical Notes Section Notes 07/20/2024 Elevated lipids (ICD-10 - E78.5) Kaykay [...] urology 02/18/2025 Mixed hyperlipidemia (ICD-10 - E78.2) Kaykay [...] Dictation was accomplished with the use of [employer] voice recognition software, prone to medical misidentifications [...] Dictation was accomplished with the use of [employer] voice recognition software, prone to medical misidentifications [...] Dictation was accomplished with the use of [employer] voice recognition software, prone to medical misidentifications [...] continue finasteride and follow up with urology Plan Of Treatment Pending Test Test Name Order Date EKG 04/18/2022 LIPID PANEL, STANDARD 07/20/2024 LIPID PANEL, STANDARD 01/15/2024 LIPID PANEL, STANDARD 02/18/2025 COMPREHENSIVE METABOLIC PANEL 02/18/2025 COMPREHENSIVE METABOLIC PANEL 07/20/2024 COMPREHENSIVE METABOLIC PANEL 01/15/2024 URIC ACID 01/15/2024 CBC (INCLUDES DIFF/PLT) 01/15/2024 CBC (INCLUDES DIFF/PLT) 07/20/2024 CBC (INCLUDES DIFF/PLT) 02/18/2025 URINALYSIS, COMPLETE 07/23/2022 URINALYSIS, COMPLETE 01/15/2024 URINALYSIS, COMPLETE 07/20/2024 HEMOGLOBIN A1c 02/18/2025 PSA (FREE AND TOTAL) 02/18/2025 VITAMIN D,25-OH,TOTAL,IA 02/18/2025 TSH+T4F+T3Free 02/18/2025 Next Appt Details Provider Name:TYRON EDWARDS, 08/19/2025 08:15:00 AM, [address], [place], [address], Insurance Providers Payer Name Payer Address Payer Phone Subscriber Number Group Number Insured Name Patient Relationship to Insured Coverage Start Date Coverage End Date [facility] [address] [place] [address] [id number] Kaykay Young Self - patient is the insured Medical (General) History Medical History History ICD Code seasonal allergies Hyperlipidemia BPH
== END 2025-06-03 12:53 | disposition home or self-care (01) ==
LOC: HO.HUSH 11:25
PROVIDERS: Visit Provider Urology
DX: N40.1 Benign prostatic hyperplasia with lower urinary tract symptoms (principal); N13.8 Other obstructive and reflux uropathy; R97.20 Elevated prostate specific antigen [PSA]
CPT/HCPCS: 99214; G2211

== ENCOUNTER 2025-06-23 09:35 | Outpatient (REF) | payer OTHER, SELFPAY ==
--- OUTSIDE RECORDS SUMMARY | 2025-06-23 10:20 | XMS_ITS | Patient Health Record ---
Author Organization [facility] [address] Address [address] [place] [address] Care Team Providers Care Rn Ccu Name Role Phone ETHEL HERMOSILLO Unavailable [phone] TYRON EDWARDS Unavailable [phone] Allergies No Known Allergies Results Component Value Reference Range Notes URINALYSIS, COMPLETE Reviewed date:02/17/2025 10:08:35 AM Interpretation: Performing Lab:NL2, [facility] Elliott Allen Notes/Report: FASTING: YES FASTING:YES COLOR YELLOW YELLOW APPEARANCE CLEAR CLEAR SPECIFIC [...] Reviewed date:02/17/2025 10:08:35 AM Interpretation: Performing Lab:NL2, [facility] Elliott Allen Notes/Report: FASTING:YES FASTING: YES [...] MPV 11.5 7.5-12.5 fL ABSOLUTE NEUTROPHILS 2685 3238-8429 cells/uL ABSOLUTE LYMPHOCYTES 6239 763-5836 cells/uL ABSOLUTE MONOCYTES 500 200-950 cells/uL ABSOLUTE EOSINOPHILS 140 15-500 cells/uL ABSOLUTE BASOPHILS 30 0-200 cells/uL NEUTROPHILS 53.7 LYMPHOCYTES 32.9 MONOCYTES 10.0 EOSINOPHILS 2.8 BASOPHILS 0.6 COMPREHENSIVE METABOLIC PANE L Reviewed date:02/17/2025 10:08:35 AM Interpretation: Performing Lab:NL2, [employer] [facility] [address] [place], [place] [address] Elliott Allen Notes/Report: FASTING:YES FASTING: YES GLUCOSE [...] Reviewed date:02/17/2025 10:08:46 AM Interpretation: Performing Lab:NL2, [employer] [facility] Fzspafic[address] [facility] HighlandsLptlwibwkeoQS[address] Elliott Allen Notes/Report: FASTING:YES FASTING: YES CHOLESTEROL, [...] equation in the estimation of LDL-C. Manuel SS et al. RACHEL. 2013;310(19): 7266-4756 (http://education.[employer]ze/faq/MUD164) CHOL/HDLC RATIO 2.4 <5.0 (calc) NON HDL CHOLESTEROL 91 <130 mg/dL (calc) For patients with diabetes plus 1 major ASCVD risk factor, treating to a non-HDL-C goal of <100 mg/dL (LDL-C of <70 mg/dL) is considered a therapeutic option. Comp. Metabolic Panel (14)-3 Reviewed date:07/16/2024 08:16:35 AM Interpretation: Performing Lab:[facility], [address] [facility], [place], Phone - [phone], Director - Christiano Notes/Report: Glucose 94 70-99 [...] IU/L ALT (SGPT) 16 0-44 IU/L Lipid Panel-[id number] Reviewed date:07/16/2024 08:16:35 AM Interpretation: Performing Lab:[facility], [address] [facility], Phone - [phone], Director - MDJodry Notes/Report: Cholesterol, Total 153 100-199 mg/dL Triglycerides 83 0-149 mg/dL HDL Cholesterol 61 >39 mg/dL VLDL Cholesterol Kash 16 5-40 mg/dL LDL Chol Calc ([facility]) 76 0-99 mg/dL CBC With Differential/Platel et-[id number] Reviewed date:07/16/2024 08:16:35 AM Interpretation: Performing Lab:[facility] [place], [address] [facility], [place], Phone - [phone], Director - MDJodry Notes/Report: WBC 4.4 3.4-10.8 x10E3/uL RBC 5.06 [...] Immature Grans (Abs) 0.0 0.0-0.1 x10E3/uL Urinalysis, Routine-[id number] Reviewed date:07/16/2024 08:16:35 AM Interpretation: Performing Lab:[facility] [place], [address] [place] [address], [place], Phone - [phone], Director - MDJodry Notes/Report: Specific [place] 1.006 1.005-1.030 pH 7.0 5.0-7.5 Urine-Color Yellow Yellow Appearance Clear Clear WBC Esterase Negative Negative Protein Negative Negative/Trace Glucose Negative Negative Ketones Negative Negative Occult Blood Negative Negative Bilirubin Negative Negative Urobilinogen,Semi-Qn 0.2 0.2-1.0 mg/dL Nitrite, Urine Negative Negative Microscopic Examination Micr oscopic not indicated and not performed. Uric Acid-[id number] Reviewed date:07/16/2024 08:16:35 AM Interpretation: Performing Lab:[facility] [place], [address] [place] [address], Phone - [phone], Director - MDJodry Notes/Report: Uric Acid 4.0 3.8-8.4 mg/dL Therapeutic ta rget for gout patients: <6.0 Reason For Referral No Information Medications Medication [...] Status Risk Notes Problem Vitamin D deficiency (22151956) Vitamin D deficiency, unspecified (E55.9) Active confirmed Problem Mixed hyperlipidemia (186457258) Mixed hyperlipidemia (E78.2) Active confirmed Problem Gout (77145771) Gout, unspecifie d (M10.9) Active confirmed Problem Adult health examination (032156239) Encounter for general adult medical examination without abnormal findings (Z00.00) Active confirmed Problem Screening for malignant neoplasm of prostate (659147464) Encounter for screening for malignant neoplasm of prostate (Z12.5) Active confirmed Problem Diabetes mellitus screening (805265792) Encounter for screening for diabetes mellitus (Z13.1) Active confirmed Problem Endocrine/metabol ic screening (643587795) Encounter for screening for other suspected endocrine disorder (Z13.29) Active confirmed Problem Annual health maintenance examination (83083591) Annual physical exam (Z00.00) Active confirmed Problem Overweight (794901991) Overweight (BMI 25.0-29.9) (E66.3) Active confirmed Problem Elevated fasting lipid profile (498856692069) Elevated lipids (E78.5) Active confirmed Problem Lipid screening (429008515) Lipid screening (Z13.220) Active confirmed Problem Benign prostatic hypertrophy without outflow obstruction (573969916) BPH without urinary obstruction (N40.0) Active confirmed Vital Signs Heart Rate 64 /min 02/18/2025 Blood pressure diastolic 74 mm Hg 02/18/2025 Oximetry 96 % 02/18/2025 Height 71 in 02/18/2025 Blood pressure systolic 112 mm Hg 02/18/2025 Weight 207.4 lbs 02/18/2025 BMI 28.92 kg/m2 02/18/2025 Encounters Encounter Location Date Provider Diagnosis [facility] [address] [place] [address] 07/20/2024 TALKARON HERMOSILLO Elevated lipids E78. 5 and Benign prostatic hyperplasia without lower urinary tract symptoms N40.[address] [place] [address] 02/18/2025 TYRONBRIAN EDWARDS Mixed hyperlipidemia E78.2 ; BPH without urinary obstruction N40.0 and Overweight (BMI 25.0-29.9) E66.3 [address] [address] [place] [address] 07/10/2024 TALAL HERMOSILLO [facility] [address] [place] [address] 03/18/2025 TYRONBRIAN EDWARDS Assessments Encounter Date Diagnosis [...] Dictation was accomplished with the use of [employer] voice recognition software, prone to medical misidentifications [...] Dictation was accomplished with the use of [employer] voice recognition software, prone to medical misidentifications [...] Dictation was accomplished with the use of [employer] voice recognition software, prone to medical misidentifications [...] 08/19/2025 08:15:00 AM, [address], [place], [address], Insurance Providers Payer Name Payer Address Payer Phone Subscriber Number Group Number Insured Name Patient Relationship to Insured Coverage Start Date Coverage End Date [facility] [address] [place] [address] [id number] Kaykay Young Self - patient is the insured Medical (General) History Medical History History ICD Code seasonal allergies Hyperlipidemia BPH
[2025-06-23 11:27] LABS: Appearance Urine Clear; Glucose Urine UA Negative (Negative); PH 6.5 (5.0-9.0); Specific Gravity - Urine 1.010 (1.005-1.025)
== END 2025-06-23 09:36 | disposition home or self-care (01) ==
LOC: HO.10HDLNP 09:35
PROVIDERS: Visit Provider Urology
DX: N40.1 Benign prostatic hyperplasia with lower urinary tract symptoms (principal); N13.8 Other obstructive and reflux uropathy; N41.9 Inflammatory disease of prostate, unspecified; R35.1 Nocturia
CPT/HCPCS: 81001; 87086

== ENCOUNTER 2025-08-30 10:34 | Day surgery (SDC) | payer OTHER, SELFPAY ==
--- OUTSIDE RECORDS SUMMARY | 2025-08-03 11:29 | XMS_ITS | Patient Health Record ---
Author Organization [facility] [address] Address [address] [place] [address] Care Team Providers Care Tax Audit Manager Name Role Phone ETHEL HERMOSILLO Unavailable [phone] TYRON EDWARDS Unavailable [phone] Allergies No Known Allergies Results Component Value Reference Range Notes URINALYSIS, COMPLETE Reviewed date:02/17/2025 10:08:35 AM Interpretation: Performing Lab:NL2, [employer] [facility] Elliott Allen Notes/Report: FASTING: YES FASTING:YES [...] Reviewed date:02/17/2025 10:08:35 AM Interpretation: Performing Lab:NL2, [employer] [facility] Elliott Allen Notes/Report: FASTING:YES FASTING: YES [...] MPV 11.5 7.5-12.5 fL ABSOLUTE NEUTROPHILS 2685 0590-6157 cells/uL ABSOLUTE LYMPHOCYTES 1480 558-8440 cells/uL ABSOLUTE MONOCYTES 500 200-950 cells/uL ABSOLUTE EOSINOPHILS 140 15-500 cells/uL ABSOLUTE BASOPHILS 30 0-200 cells/uL NEUTROPHILS 53.7 LYMPHOCYTES 32.9 MONOCYTES 10.0 EOSINOPHILS 2.8 BASOPHILS 0.6 COMPREHENSIVE METABOLIC PANE L Reviewed date:02/17/2025 10:08:35 AM Interpretation: Performing Lab:NL2, [facility] [facility] [address] [place], [place] [address] Elliott Allen Notes/Report: FASTING:YES FASTING: YES GLUCOSE [...] Reviewed date:02/17/2025 10:08:46 AM Interpretation: Performing Lab:NL2, [employer] [facility] [address] [facility] Elliott Allen Notes/Report: FASTING:YES FASTING: YES CHOLESTEROL, [...] LDL-C. Manuel GOYAL et al. RACHEL. 2013;310(19): 6097-1752 (http://education.[employer]/faq/NTC897) CHOL/HDLC RATIO 2.4 <5.0 (calc) NON HDL [...] Status Risk Notes Problem Vitamin D deficiency (44322769) Vitamin D deficiency, unspecified (E55.9) Active confirmed Problem Mixed hyperlipidemia (771151753) Mixed hyperlipidemia (E78.2) Active confirmed Problem Gout (70846645) Gout, unspecifie d (M10.9) Active confirmed Problem Adult health examination (468506102) Encounter for general adult medical examination without abnormal findings (Z00.00) Active confirmed Problem Screening for malignant neoplasm of prostate (882351920) Encounter for screening for malignant neoplasm of prostate (Z12.5) Active confirmed Problem Diabetes mellitus screening (129027448) Encounter for screening for diabetes mellitus (Z13.1) Active confirmed Problem Endocrine/metabol ic screening (500821521) Encounter for screening for other suspected endocrine disorder (Z13.29) Active confirmed Problem Annual health maintenance examination (67545192) Annual physical exam (Z00.00) Active confirmed Problem Overweight (360686558) Overweight (BMI 25.0-29.9) (E66.3) Active confirmed Problem Elevated fasting lipid profile (716230309039) Elevated lipids (E78.5) Active confirmed Problem Lipid screening (302103042) Lipid screening (Z13.220) Active confirmed Problem Benign prostatic hypertrophy without outflow obstruction (586259100) BPH without urinary obstruction (N40.0) Active confirmed Vital Signs Heart Rate 64 /min 02/18/2025 Oximetry 96 % 02/18/2025 Blood pressure diastolic 74 mm Hg 02/18/2025 Height 71 in 02/18/2025 Blood pressure systolic 112 mm Hg 02/18/2025 Weight 207.4 lbs 02/18/2025 BMI 28.92 kg/m2 02/18/2025 Encounters Encounter Location Date Provider Diagnosis [facility] [address] [place] [address] 02/18/2025 TYRON EDWARDS Mixed hyperlipidemia E78.2 ; BPH without urinary obstruction N40.0 and Overweight (BMI 25.0-29.9) E66.[address] [place] [address] 03/18/2025 TYRON EDWARDS Assessments Encounter Date Diagnosis (ICD Code) Assessment Notes Treatment Notes Treatment Clinical Notes Section Notes 02/18/2025 BPH without urinary obstruction (ICD-10 - N40.0) German is a 65-year-old male present today for 6-month follow-up. Past medical history includes BPH, hyperlipidemia and gout. #PSA #BPH: Most recent PSA from 08/2024 of 2.. Followed by urology every 6 months. Monitors [...] Dictation was accomplished with the use of [employer] voice recognition software, prone to medical misidentifications and grammatical errors. This is unintentional and the practitioner does try to identify and correct these, but some could still be present. Please do not hesitate to contact practitioner for clarification. 02/18/2025 Mixed hyperlipidemia (ICD-10 - E78.2) German [...] Dictation was accomplished with the use of [employer] voice recognition software, prone to medical misidentifications [...] #BPH: Most recent PSA from 08/2024 of 12.05. Followed by urology every 6 months. Monitors [...] Dictation was accomplished with the use of [employer] voice recognition software, prone to medical misidentifications [...] 02/18/2025 URIC ACID 01/15/2024 CBC (INCLUDES DIFF/PLT) 01/15/2024 CBC (INCLUDES DIFF/PLT) 07/20/2024 CBC (INCLUDES DIFF/PLT) 02/18/2025 URINALYSIS, COMPLETE 01/15/2024 URINALYSIS, COMPLETE 07/23/2022 URINALYSIS, COMPLETE 07/20/2024 HEMOGLOBIN A1c 02/18/2025 PSA (FREE AND TOTAL) 02/18/2025 VITAMIN D,25-OH,TOTAL,IA 02/18/2025 TSH+T4F+T3Free 02/18/2025 Next Appt Details Provider Name:TYRON EDWARDS, 08/19/2025 08:15:00 AM, [address], [place], [address], Insurance Providers Payer Name Payer Address Payer Phone Subscriber Number Group Number Insured Name Patient Relationship to Insured Coverage Start Date Coverage End Date [facility] [address] [place] [id number] German Young Self - patient is the insured Medical (General) History Medical History History ICD Code seasonal allergies Hyperlipidemia BPH
--- NOTE | 2025-08-25 14:32 | HO.ANESPROP2 ---
Documented by User: Selina Ko NP 08/25/25 14:32 HPI - Anesthesia Eval Consult details Narrative: 65 yr old male for Targeted Prostate Needle Biopsy [facility] Active Problems Active Problems: All Active Problems Elevated PSA (Acute) Erectile dysfunction (Acute) Prostatitis (Acute) Nocturia (Acute) BPH w urinary obs/LUTS (Acute) Past Medical History Medical History Elevated PSA Prostatitis BPH (benign prostatic hyperplasia) Surgical History Surgical History (Updated 08/26/25 @ 11:16 by Liza Rico, RN) Hx of colonoscopy History of vasectomy Social History Social History (Updated 08/26/25 @ 11:16 by Liza Rico, RN) Household Members: Spouse Housing: House Are you a primary insurance healthcare representative to a significant other at home: No Do you presently have visiting nurse or other home services: No Patient Tobacco Use Status: Never used Tobacco Use of substances other than those prescribed or required for medical reasons: No Have you been hit, kicked, punched, or otherwise hurt by someone within the past year? If so, by whom?: No Are you DNR?: No Advance Directives: No Advance Directives Information Provided: Yes Advance Directives on File: No Meds Allergies Allergy/AdvReac Type Severity Reaction Status Date / Time No Known Allergies Allergy Verified 08/26/25 11:14 Home Medications ?Medication ?Instructions ?Recorded ?Confirmed ?Last Taken ?Type acetaminophen 500 mg tablet 500 mg PO Q8H PRN pain 08/26/25 08/26/25 Unknown History multivitamin 1 tab PO DAILY 08/26/25 08/26/25 Unknown History Documented by User: Bertin Gaines MD 08/30/25 12:33 PMFSH Past Medical History Medical History Elevated PSA Prostatitis BPH (benign prostatic hyperplasia) Family History Family history of problems with anesthesia: No Surgical History Surgical History (Updated 08/26/25 @ 11:16 by Liza Rico RN) Hx of colonoscopy History of vasectomy History of Problems with Anesthesia: No Social History Social History (Updated 08/26/25 @ 11:16 by Liza Rico RN) Household Members: Spouse Housing: House Are you a primary insurance healthcare representative to a significant other at home: No Do you presently have visiting nurse or other home services: No Patient Tobacco Use Status: Never used Tobacco Use of substances other than those prescribed or required for medical reasons: No Have you been hit, kicked, punched, or otherwise hurt by someone within the past year? If so, by whom?: No Are you DNR?: No Advance Directives: No Advance Directives Information Provided: Yes Advance Directives on File: No Meds Allergies Allergy/AdvReac Type Severity Reaction Status Date / Time No Known Allergies Allergy Verified 08/26/25 11:14 Home Medications ?Medication ?Instructions ?Recorded ?Confirmed ?Last Taken ?Type acetaminophen 500 mg tablet 500 mg PO Q8H PRN pain 08/26/25 08/26/25 Unknown History multivitamin 1 tab PO DAILY 08/26/25 08/26/25 Unknown History Exam Airway Mallampati Class: III TM Dist: >3cm Neck ROM: Full Loose/Missing/Broken Teeth: No Heart: RRR Lungs: CTA Assessment and Plan Assessment Anesthesia Assessment: Anesthesia Plan Discussed Final Anesthetic Review Family History of Problems with Anesthesia: No History of Problems with Anesthesia: No NPO: Yes ASA Class: II Patient Risk: Low Anesthetic Plan Anesthetic Plan: GA Disposition: Standard PACU
[2025-08-26 11:09] VITALS: BMI 27.9
[2025-08-30 10:51] VITALS: BP 143/69; PULSE 69; RESP 20; TEMP 36.9; O2SAT 97; BMI 28.9
[2025-08-30] MEDS: Lactated Ringers 1,000 ML 100 ML IVCONT (11:06)
--- NOTE | 2025-08-30 12:43 | P.HPSUR_ITS ---
Pre-Procedural Eval Section A - 24 Hr Update-Section A only Date of Service: 08/30/25 The patient is an INPATIENT: No Changes since office visit: No Cold of Flu in the past 2 weeks, No New Medical Problems, No Changes in Medication and No Patient answered all questions The patient has been examined within 24 hours of the surgical procedure. The History & Physical has been completed within 30 days and I have reviewed it.: Yes Section B - Complete if H&P > 30 days Chief Complaint: Elevated prostate specific antigen [PSA] Details of Present Illness: Transperineal stereotactic ultrasound guided mri tar geted prostate biopsy Allergies: Allergies Allergy/AdvReac Type Severity Reaction Status Date / Time No Known Allergies Allergy Verified 08/26/25 11:14 Review of Systems Sugical H&P ROS: Negative: Constitution, Cardiovascular, Respiratory, Neurological, Psychiatric, Hem-Onc, Allergic/Immunologic, Gastrointestinal, Genitourinary, Musculoskeletal, Integumentary, Endocrine and Eyes/Ears/Nose/Throat Exam Surgical H&P Exam: Normal: HEENT, Normal: Heart, Normal: Lungs, Normal: Extremities, Normal: Abdomen, Normal: Skin and Normal: Neurological Plan Diagnosis/Plan: Unchanged I have reviewed the history and physical and performed a pertinent physical examination on my patient. No changes have occurred unless specified. Time Spent With Patient Time: Total time managing care of this patient today ____ minutes.
--- NOTE | 2025-08-30 13:36 | P.OP_ITS ---
Operative Note Operative Note Date of Service: 08/30/25 Narrative: Preoperative diagnosis: Suspicious prostate lesion on MRI Postoperative diagnosis: Suspicious prostate lesion on MRI Procedure: 1. transrectal ultrasound-guided pudendal nerve block 2. Prostate Ultrasound image acquisition, registration and 3D model creation 3. Prostate MRI Model and Target fusion with intraoperative prostate ultrasound 3. Transperineal Ultrasound Guided Sterotactic prostate biopsy including saturation biopsy of MRI identified targeted prostate lesions Surgeon: Dr. Johan Tovar Anesthetic: Sedation plus local Indications for procedure: Suspicious prostate lesion on MRI. Left peripheral lateral peripheral zone 10 mm PI-RADS 4. PSA 3.5 on finasteride Procedure: After informed consent was verified, the patient was brought into the procedure area. Patient identity confirmed. Perioperative antibiotics confirmed. Safety pause time out performed. Anesthesia performed per protocol. Scrotum taped out of operative area. Iodine prep used. Perineal injection of local anesthetic. Digital guided prostate pudendal nerve block performed with 10 cc of 1% lidocaine. 5cc each side. Ultrasound probe was placed per rectum. Ultrasound probe stabilized on a prostate stepper with attached perineal sterotactic targeting grid with 5mm interval holes. Perineal targeting grid A-C covering right prostate and c-F covering left prostate. Numbers 1.0-2.5 covering posterior prostate and 2.5-4.0 covering anterior prostate. [employer] ([employer]) software and hardware platform was used for prostate ultrasound image acquisition, ultrasound image registration, 3D model creation and MRI-US fusion image overlay. Ultrasound placement was made with external grid calibration for height and prostate diameter in both the transverse and longitudinal planes. Prostate was aligned midline and reviewed for transverse and sagittal positioning. The bottom of the prostate was aligned with the 1.0 horizontal positioning on the guidance grid. Once perineal grid calibration was confirmed prostate ultrasound data acquisition was performed with ultrasound sweeping in a transverse fashion. Images were acquired moving from prostate base to apex. This was performed in an even fashion with approx 0.5cm extra length at base and apex. The acquired ultrasound images were then registered to create 3D model boundaries in the operating room. [place] markers were applied to ultrasound images in transverse and longitudinal sterotactic fashion. [place] and base were marked first followed by conformational boundaries. A three dimensional sterotactic ultrasound model was created using [employer] ([employer]) software. The model was reviewed against acquired ultrasound images and perineal grid alignment was performed. The planned perineal needle sterotactic targeting, based on prior acquisition of MRI imaging, was overlaid on the ultrasound 3D images and targets confirmed through ultrasound review. Adjustments were then made between real time and projected model targeting locations. Based on pre-planning evaluation 16 needle locations had been identified. Locations have been identified according to template grid positions. Modelled locations are reviewed in real time for 3D mapping of location. These included 4 targets on the 10mm Left posterolateral peripheral zone lesion identified on MRI. Biopsies were performed moving from far left lateral inferior to far right lateral inferior. Non-target biopsies were distributed evenly between left and right prostate lobes. Sterotactic targeting of biopsy needle location was confirmed in real time with longitudinal US prior to biopsy needle firing. Cognitive adjustments to preplanned positions were made as necessary to ensure samples were taken from planned prostate areas particularly regarding depth of biopsy with respect to prostate apex and base. Saturation biopsy was performed on targeted lesions. Biopsy number was dependent on prostate lesion size. Upon biopsy completion probe was removed from the rectum. The patient tolerated the procedure well and was transferred to stable condition in the PACU. Printed instructions regarding antibiotic use and common side effects such as low-grade temperature, potential infection and bleeding were given Pathology: 16 needle prostate biopsy CPT 74730 Modifier 22 for complexity of procedure execution (Saturation Perineal prostate biopsy) CPT code 00058: Transrectal ultrasound; this is a diagnostic test for evaluation of the prostate and surrounding structures, looking for abnormalities or suspicious areas worrisome for cancer CPT code 69059: Ultrasonic guidance for needle placement (eg, biopsy, aspiration, injection, localization device), imaging supervision and interpretation CPT 28741: 3D rendering with interpretation and reporting of computed tomography (CT), MRI, ultrasound, or other tomographic modality with image postprocessing under concurrent supervision; not requiring image postprocessing on an independent workstation
[2025-08-30 13:38] VITALS: BP 143/79; PULSE 82; RESP 20; TEMP 36.4; O2SAT 96
[2025-08-30 13:43] VITALS: BP 135/74; PULSE 71; RESP 12; O2SAT 97
[2025-08-30 13:48] VITALS: BP 135/74; PULSE 65; RESP 16; O2SAT 96
[2025-08-30 13:53] VITALS: BP 139/83; PULSE 68; RESP 16; O2SAT 95
[2025-08-30 14:06] VITALS: BP 141/80; PULSE 74; RESP 14; TEMP 36.4; O2SAT 97
== END 2025-08-30 14:43 | disposition home or self-care (01) ==
PROVIDERS: Visit Provider Urology
PROC: (CPT 55700; principal; 2025-08-30 13:00)
DX: N40.1 Benign prostatic hyperplasia with lower urinary tract symptoms (principal); N13.8 Other obstructive and reflux uropathy; R97.20 Elevated prostate specific antigen [PSA]; R39.12 Poor urinary stream; R39.15 Urgency of urination; N41.1 Chronic prostatitis; N52.9 Male erectile dysfunction, unspecified; Z79.899 Other long term (current) drug therapy; Z98.52 Vasectomy status
CPT/HCPCS: 55706; 88305; J2003; J2250; J2704

== ENCOUNTER → 2025-08-30 10:34 | Outpatient (BNV) | payer OTHER, SELFPAY | PROVIDERS: Visit Provider Urology | DX: R97.20 Elevated prostate specific antigen [PSA] (principal); N42.89 Other specified disorders of prostate | CPT/HCPCS: 55706 ==

== ENCOUNTER 2025-09-10 13:06 | Outpatient (AMB) | payer OTHER, SELFPAY ==
--- NOTE | 2025-09-10 13:07 | MHC.OFFVIS ---
Intake Visit Reasons: Prostate Biopsy results Intake Note: Patient is Present for Follow Up Prostate Biopsy Results Urology Medication: Finasteride, Sildenafil Antibiotic Allergies: None Blood Thinners: None Life Insurance Agent Required: No Accompanied by: Self / Same As Patient Allergies No Known Allergies Allergy (Verified 09/10/25 13:08) HPI Comments Details: German a very pleasant male. He is a patient of Dr. Hermosillo. 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 02/25 2.0, 08/27 2.0, 03/28 3.5 Current therapy finasteride - every other day - minimal libido impact - 05/24 urine DNA test regarding risk for prostate cancer came back equivocal Erectile dysfunction: He presents today for for continued evaluation and management of erectile dysfunction. Symptoms have been present for/since gradual during 2017. Current treatment includes Viagra/sildenafil. Treatment side effects include none. Prior therapies include oral medications. At this time he experiences erections 07/22 are partial and adequate for vaginal penetration, that last until ejaculation, YOSVANY 12-16 Mild-Moderate ED. Nocturnal erections do occur. Currently they are in a stable relationship. Overall he is satisfied with the current management. Therapeutic plan includes increasing dose of oral medication. [facility] Medical History Elevated PSA Prostatitis BPH (benign prostatic hyperplasia) Surgical History Hx of colonoscopy History of vasectomy Social History Household Members: Spouse Housing: House Are you a primary animal care service worker to a significant other at home: No Do you presently have visiting nurse or other home services: No Patient Tobacco Use Status: Never used Tobacco Review of Systems Const Denies chills and Denies fever(s) Card Reports no additional complaints and Denies syncope Resp Denies cough GI Denies abdominal pain and Denies heartburn Reports as per HPI and Denies change in libido Neuro Denies syncope Psych Denies change in libido Endo Denies change in libido Physical Exam Const General: cooperative, healthy appearing, comfortable and no acute distress Orientation/consciousness: patient oriented x3 HEENT Face and sinus: Yes normal facial exam Mouth: moist mucous membranes Neck Neck: Yes normal visual inspection, Yes full ROM and Yes trachea midline Chest Chest palpation & inspection: normal inspection of the chest Resp Effort & Inspection: normal respiratory effort, able to speak in complete sentences and no respiratory distress GI Inspection: Yes normal to inspection Back/Spine/Pelvis Cervical Spine: normal cervical lordosis Thoracic/Lumbar Spine: thoracic and lumbar spine normal to inspection Skin General skin exam: no rashes or lesions noted Neuro General: patient oriented x3, gait normal, tone normal and moves all extremities Extrem General: Yes normal to inspection and Yes capillary refill normal Telehealth Telehealth Telehealth Platform: [employer] Location of provider rendering services: practice address Location of patient: address on file Patient Identification confirmed using: Name, : Yes Telehealth method: voice only Patient verbally consented to treatment: Yes Patient verbally consented to billing insurance company: Yes Patient informed of any privacy concerns related to visit: Yes Minutes spent on Phone/Video with Pt.: 15 Assessment & Plan Assessment & Plan (1) Elevated PSA: Code(s): R97.20 - Elevated prostate specific antigen [PSA] Category: Medical (2) Prostatitis: Code(s): N41.9 - Inflammatory disease of prostate, unspecified Category: Medical Plan Six-month follow-up PSA Orders: Orders Prostate Specific Antigen 6 Months N41.9 - Inflammatory disease of prostate, unspecified Patient Instructions: This note is constructed using voice recognition software. While every effort has been made to ensure accuracy beater machine operator errors may have been included. Imaging studies, laboratory and physical exam results were discussed and reviewed in detail. No major barriers to patient understanding were identified. An opportunity to ask questions regarding the treatment plan was provided. All questions were answered. The patient expressed understanding and agreement with the above treatment plan. The patient is aware they should contact our office by phone for worsening of their current condition or the appearance of new urologic symptoms. Compliance is encouraged with any medications and followup testing that is ordered. It is a privilege to participate in the urologic care of your patient. If you have any questions or concerns regarding treatment for the above conditions, or other urologic issues, please do not hesitate to contact me. The office telephone contact is [phone]. Sincerely, Dr Johan Tovar MD, [facility] - Urology Compassionate Specialist Care for the Genitourinary System Coding Level of Care Code Tele Est Pt Level 3 (83166) Complex EM visit Add On G2211 Diagnoses Elevated PSA R97.20 Prostatitis N41.9
--- OUTSIDE RECORDS SUMMARY | 2025-09-10 15:15 | XMS_ITS | Patient Health Record ---
Author Organization [facility] [address] [address] Address [address] [place] [address] Care Team Providers Care Snuff Blender Name Role Phone ETHEL HERMOSILLO Unavailable [phone] TYRON EDWARDS Unavailable [phone] Allergies No Known Allergies Results Component Value Reference Range Notes VITAMIN D,25-OH,TOTAL,IA Reviewed date:08/12/2025 07:55:21 AM Interpretation: Performing Lab:NL2, [facility] [place], [place] [id number] Elliott Allen Notes/Report: FASTING: YES FASTING:YES VITAMIN D,25-OH,TOTAL,IA 45 30-100 ng/mL Vitamin D Status 25-OH Vitamin D: Deficiency: <20 ng/mL Insufficiency: 20 - 29 ng/mL Optimal: > or = 30 ng/mL For 25-OH Vitamin D testing on patients on D2-supplementation and patients for whom quantitation of D2 and D3 fractions is required, the QuestAssureD(TM) 25-OH VIT D, (D2,D3), LC/MS/MS is recommended: order code 93684 (patients >2yrs). See Note 1 Note 1 For additional information, please refer to http://education.[employer].ibeatyou/faq/XOV861 (This link is being provided for informational/ educational purposes only.) T3, FREE Reviewed date:08/12/2025 07:55:21 AM Interpretation: Performing Lab:NL2, [facility] Elliott Allen Notes/Report: FASTING:YES FASTING: YES T3, FREE 3.5 2.3-4.2 pg/mL TSH Reviewed date:08/12/2025 07:55:21 AM Interpretation: Performing Lab:NL2, [facility] [place] [id number] [place] [address] [facility] Notes/Report: FASTING:YES FASTING: YES TSH 1.05 0.40-4.50 mIU/L T4, FREE Reviewed date:08/12/2025 07:55:21 AM Interpretation: Performing Lab:NL2, [facility] [address] Notes/Report: FASTING:YES FASTING: YES T4, FREE 1.3 0.8-1.8 ng/dL PSA (FREE AND TOTAL) Reviewed date:08/13/2025 07:53:20 AM Interpretation: Performing Lab:NL2, [facility] [address] Notes/Report: FASTING: YES FASTING:YES PSA, TOTAL 1.8 < OR = 4.0 ng/mL PSA, FREE 0.4 PSA, % FREE 22 >25 % (calc) PSA(ng/mL) Free PSA(%) Estimated(x) Probability of Cancer(as%) 0-2.5 (*) Approx. 1 2.6-4.0(1) 0-27(2) 24(3) 4.1-10(4) 0-10 56 11-15 28 16-20 20 21-25 16 >or =26 8 >10(+) N/A >50 References:(1)Aye et al.:Urology 60: 469-474 (2002) (2)Aye et al.:J.Urol 168: 922-925 (2001) Free PSA(%) Sensitivity(%) Specificity(%) < or = 25 85 19 < or = 30 93 9 (3)Aye et al.:RACHEL 277: 4037-5779 (1996) (4)Catalona et al.:RACHEL 279: 1623-0660 (1997) (x)These estimates vary with age, ethnicity, family history and ABEBA results. (*)The diagnostic usefulness of % Free PSA has not been established in patients with total PSA below 2.6 ng/mL (+)In men with PSA above 10 ng/mL, prostate cancer risk is determined by total PSA alone. The Total PSA value from this assay system is standardized against the equimolar PSA standard. The test result will be approximately 20% higher when compared to the WHO-standardized Total PSA (Siemens assay). Comparison of serial PSA results should be interpreted with this fact in mind. PSA was performed using the Joi Fallon Immunoassay method. Values obtained from different assay methods cannot be used interchangeably. PSA levels, regardless of value, should not be interpreted as absolute evidence of the presence or absence of disease. HEMOGLOBIN A1c Reviewed date:08/12/2025 07:55:21 AM Interpretation: Performing Lab:NL2, [facility] [facility] Elliott Allen Notes/Report: FASTING: YES FASTING:YES HEMOGLOBIN A1c 5.4 <5.7 % For the purpose of screening for the presence of diabetes: <5.7% Consistent with the absence of diabetes 5.7-6.4% Consistent with increased risk for diabetes (prediabetes) > or =6.5% Consistent with diabetes This assay result is consistent with a decreased risk of diabetes. Currently, no consensus exists regarding use of hemoglobin A1c for diagnosis of diabetes in children. According to [place] Diabetes Association (ADA) guidelines, hemoglobin A1c <7.0% represents optimal control in non- diabetic patients. Different metrics may apply to specific patient populations. Standards of Medical Care in Diabetes(ADA). CBC (INCLUDES DIFF/PLT) Reviewed date:08/12/2025 07:55:21 AM Interpretation: Performing Lab:NL2, [facility] Elliott Allen Notes/Report: FASTING:YES FASTING: YES WHITE BLOOD CELL COUNT 4.3 3.8-10.8 Thousand/ uL RED BLOOD CELL COUNT 5.18 4.20-5.80 Million/uL HEMOGLOBIN 15.1 13.2-17.1 g/dL HEMATOCRIT 46.8 38.5-50.0 % MCV 90.3 80.0-100.0 fL MCH 29.2 27.0-33.0 pg MCHC 32.3 32.0-36.0 g/dL For adults, a slight decrease in the calculated MCHC value (in the range of 30 to 32 g/dL) is most likely not clinically significant; however, it should be interpreted with caution in correlation with other red cell parameters and the patient's clinical condition. RDW 14.1 11.0-15.0 % PLATELET COUNT 161 140-400 Thousand/uL MPV 11.1 7.5-12.5 fL ABSOLUTE NEUTROPHILS [phone] cells/uL ABSOLUTE LYMPHOCYTES 0858 610-8241 cells/uL ABSOLUTE MONOCYTES 370 200-950 cells/uL ABSOLUTE EOSINOPHILS 142 15-500 cells/uL ABSOLUTE BASOPHILS 22 0-200 cells/uL NEUTROPHILS 56.8 LYMPHOCYTES 30.8 MONOCYTES 8.6 EOSINOPHILS 3.3 BASOPHILS 0.5 COMPREHENSIVE METABOLIC PANE L Reviewed date:08/12/2025 07:55:21 AM Interpretation: Performing Lab:NL2, [facility] Elliott Allen Notes/Report: FASTING:YES FASTING: YES GLUCOSE 92 65-99 mg/dL Fasting reference interval UREA NITROGEN (BUN) 14 7-25 mg/dL CREATININE 0.97 0.70-1.35 mg/dL EGFR 87 > OR = 60 mL/min/1.73m2 BUN/CREATININE RATIO SEE NOTE: 6-22 (calc) Not Reported: BUN and Creatinine are within reference range. SODIUM 138 135-146 mmol/L POTASSIUM 4.7 3.5-5.3 mmol/L CHLORIDE 103 98-110 mmol/L CARBON DIOXIDE 32 20-32 mmol/L CALCIUM 9.4 8.6-10.3 mg/dL PROTEIN, TOTAL 6.8 6.1-8.1 g/dL ALBUMIN 4.4 3.6-5.1 g/dL GLOBULIN 2.4 1.9-3.7 g/dL (calc) ALBUMIN/GLOBULIN RATIO 1.8 1.0-2.5 (calc) BILIRUBIN, TOTAL 0.5 0.2-1.2 mg/dL ALKALINE PHOSPHATASE 60 35-144 U/L AST 18 10-35 U/L ALT 15 9-46 U/L LIPID PANEL, STANDARD Reviewed date:08/12/2025 07:55:21 AM Interpretation: Performing Lab:[employer], [facility] Elliott Allen Notes/Report: FASTING:YES FASTING: YES CHOLESTEROL, TOTAL 193 <200 mg/dL HDL CHOLESTEROL 68 > OR = 40 mg/dL TRIGLYCERIDES 82 <150 mg/dL LDL-CHOLESTEROL 108 Reference range: <100 Desirable range <100 mg/dL for primary prevention; <70 mg/dL for patients with CHD or diabetic patients with > or = 2 CHD risk factors. LDL-C is now calculated using the Donna calculation, which is a validated novel method providing better accuracy than the Friedewald equation in the estimation of LDL-C. Manuel SS et al. RACHEL. 2013;310(67): 0682-0292 (http://[employer].Lowdownapp Ltd/faq/WOP408) CHOL/HDLC RATIO 2.8 <5.0 (calc) NON HDL CHOLESTEROL 125 <130 mg/dL (calc) For patients with diabetes plus 1 major ASCVD risk factor, treating to a non-HDL-C goal of <100 mg/dL (LDL-C of <70 mg/dL) is considered a therapeutic option. URINALYSIS, COMPLETE Reviewed date:02/17/2025 10:08:35 AM Interpretation: Performing Lab:[employer], [place] [facility] Elliott Allen Notes/Report: FASTING:YES FASTING: YES [...] DIFF/PLT) Reviewed date:02/17/2025 10:08:35 AM Interpretation: Performing Lab:[employer] [facility] [place], [place] [id number] Chrisyelena Mckinley Allen Notes/Report: FASTING:YES FASTING: YES WHITE BLOOD [...] MPV 11.5 7.5-12.5 fL ABSOLUTE NEUTROPHILS 2685 7051-4304 cells/uL ABSOLUTE LYMPHOCYTES 3709 306-9664 cells/uL ABSOLUTE MONOCYTES 500 200-950 cells/uL ABSOLUTE EOSINOPHILS 140 15-500 cells/uL ABSOLUTE BASOPHILS 30 0-200 cells/uL NEUTROPHILS 53.7 LYMPHOCYTES 32.9 MONOCYTES 10.0 EOSINOPHILS 2.8 BASOPHILS 0.6 COMPREHENSIVE METABOLIC PANE L Reviewed date:02/17/2025 10:08:35 AM Interpretation: Performing Lab:NL2, [place] [facility] Elliott Allen Notes/Report: FASTING:YES FASTING: YES [...] Reviewed date:02/17/2025 10:08:46 AM Interpretation: Performing Lab:NL2, [facility] [id number] [facility] Elliott Sen Tiffany Notes/Report: FASTING:YES FASTING: YES CHOLESTEROL, TOTAL 155 [...] LDL-C. Manuel SS et al. RACHEL. 2013;310(19): 9779-9663 (http://education.Lowdownapp Ltd/faq/HAM433) CHOL/HDLC RATIO 2.4 <5.0 (calc) NON HDL CHOLESTEROL 91 <130 mg/dL (calc) For patients with diabetes plus 1 major ASCVD risk factor, treating to a non-HDL-C goal of <100 mg/dL (LDL-C of <70 mg/dL) is considered a therapeutic option. Reason For Referral No Information Medications Medication SIG (Take, Route, Fr equency, Duration) Notes Start Date End Date Status Fish Oil Active CoQ10 100 MG as directed Orally Active Multivitamin Active Finasteride 5 MG 1 tablet Orally Once a day Active Immunizations Vaccine Route Administration Date Status Comme nts influenza IM Intramuscular 08/21/2023 Administered influenza IM Intramuscular 08/19/2025 Administered Social History Tobacco Use: Social History [...] Status Risk Notes Problem Vitamin D deficiency (38023189) Vitamin D deficiency, unspecified (E55.9) Active confirmed Problem Mixed hyperlipidemia (654537067) Mixed hyperlipidemia (E78.2) Active confirmed Problem Chronic pain (67969360) Other chronic pain (G89.29) Active confirmed Problem Gout (44589645) Gout, unspecifie d (M10.9) Active confirmed Problem Adult health examination (694721139) Encounter for general adult medical examination without abnormal findings (Z00.00) Active confirmed Problem Screening for malignant neoplasm of prostate (522394469) Encounter for screening for malignant neoplasm of prostate (Z12.5) Active confirmed Problem Diabetes mellitus screening (480465105) Encounter for screening for diabetes mellitus (Z13.1) Active confirmed Problem Endocrine/metabol ic screening (211020770) Encounter for screening for other suspected endocrine disorder (Z13.29) Active confirmed Problem Annual health maintenance examination (49035116) Annual physical exam (Z00.00) Active confirmed Problem Overweight (904456677) Overweight (BMI 25.0-29.9) (E66.3) Active confirmed Problem Elevated fasting lipid profile (707230601526) Elevated lipids (E78.5) Active confirmed Problem Lipid screening (336954565) Lipid screening (Z13.220) Active confirmed Problem Benign prostatic hypertrophy without outflow obstruction (220945997) BPH without urinary obstruction (N40.0) Active confirmed Vital Signs Heart Rate 78 /min 08/19/2025 Oximetry 97 % 08/19/2025 Blood pressure diastolic 66 mm Hg 08/19/2025 Height 71 in 08/19/2025 Blood pressure systolic 118 mm Hg 08/19/2025 Weight 206.8 lbs 08/19/2025 BMI 28.84 kg/m2 08/19/2025 Encounters Encounter Location Date Provider Diagnosis [facility] [address] [place] [address] 02/18/2025 TYRON EDWARDS Mixed hyperlipidemia E78.2 ; BPH without urinary obstruction N40.0 and Overweight (BMI 25.0-29.9) E66.[address] [facility] [address] [place] [address] 08/19/2025 TYRON EDWARDS General medical exam Z00.00 ; Mixed hyperlipidemia E78.2 ; BPH without urinary obstruction N40.0 ; Elevated PSA R97.20 ; Pain in right knee M25.561 ; Other chronic pain G89.29 ; Actinic keratosis L57.0 ; Encounter for examination of blood pressure without abnormal findings Z01.30 and Encounter for immunization Z23 [facility] [address] [place] [address] 03/18[facility]20[facility] [address] [place] [address] 08/19/2025 TYRON EDWARDS Assessments Encounter Date Diagnosis (ICD [...] Dictation was accomplished with the use of [employer] voice recognition software, prone to medical misidentifications and grammatical errors. This is unintentional and the practitioner does try to identify and correct these, but some could still be present. Please do not hesitate to contact practitioner for clarification. 08/19/2025 Mixed hyperlipidemia (ICD-10 - E78.2) Kaykay is a 65-year-old male present today for CPE. #Healthcare proxy on file. #PHQ-9 negative. #Immunizations: Will update influenza vaccine today. Declines PNA. Otherwise up-to-date on vaccines. #Screenings: Reports colonoscopy performed 2020 at [facility] with recommendations to repeat in 10 years. Do not have records. Will fax [facility] request for records. #Right knee pain: Chronic in nature. Not affecting mobility. 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 He uses ibuprofen as needed. No trauma noted. Unremarkable on physical exam. If knee pain worsens, will consider x-ray. Suspecting osteoarthritis. #Hyperlipidemia: Discontinue rosuvastatin 5 mg. LDL slightly elevated 108. Consistent with fish oil and co-Q10. Recent coronary calcium scan performed with a score of 0, no evidence of coronary artery disease. Will continue to monitor cholesterol every 6 months and repeat coronary calcium scan every 3-5 years. #BPH #elevated PSA: Followed by [facility] urology and seen every 6 months. Scheduled for prostate biopsy August 25. Continue finasteride 5 mg p.o. once daily. #Actinic keratosis: Followed by dermatology. Undergoes UV treatment with 1 scheduled today. # Follow-up 6 months in office with labs. Patient seen and examined. Comprehensive discussion was done on the following. 1. Nutrition: It is important to follow a healthy diet based on lots of vegetables and legumes and good fat. Avoid processed food and processed carbohydrates. Prepare your own meals. Read labels and avoid high fructose corn syrup, processed chemicals added to increase shelf life and preprepared meals. Avoid fast foods. Eat slowly and plan meals for a week. Try to count calories and be mindful of daily calorie intake. Get into the habit of keeping an eye on your weight by using an appropriate scale. Learn to log exercise and discussed fitness Apps like Nudge/Circalit which can help keep log off calories taken versus calories burned. Local food should be preferred. Discussed Dirty Dozen Versus Clean Fifteen. Discussed healthy supplements like fish oil, Tumeric, Curcumin, Melatonin, Resveratrol, Probiotics, Vitamin-D, Alpha-Lipoic acid, Vitamin-D and coconut oil. 2. It is important to exercise regularly. Is a good habit to walk at least 30 minutes a day. Gentle weightlifting with standard precautions to protect the back. Finding activity like cycling or hiking and get into the habit of engaging in it. Stretching before and after the exercises important. It is also important to contact me if there are any problems like shortness of breath, chest pain, back pain and joint or muscle pain associated with the exercise. 3. Discussed age appropriate screening guidelines. Colonoscopy needs to start at age 50 with stool for occult blood as appropriate. There is a new test that can test for genetic abnormalities in the stool sample, Cologuard. This would not replace a colonoscopy but could be used as a screening tool for patients who do not want a colonoscopy. We discussed the importance of early detection of colon cancer. 4. Discussed current PSA screening. PSA screening can be done in most patients between age 50 and 65. However early detection of prostate cancer needs to carefully be balanced with complications with treatment. These include incontinence, impotence etc. Each patient should decide if they would like to have this test. 5. Discussed safe driving and no use of smart phone while driving 6. Age-appropriate immunizations were discussed. A tetanus booster is needed every 10 years. Flu vaccine is recommended every year just before the start of the flu season. Shingles vaccine is recommended after age 50 but not all insurances cover it. Pneumonia vaccine is given after age 65 unless there are certain comorbidities for which it is started earlier. 7. Diagnostic labs were discussed. These could include/not limited to CBC CMP and lipids with fasting blood glucose and insulin levels. Vitamin D and hemoglobin A1c testing might be appropriate. All questions answered to patients satisfaction. Patient verbalized understanding of diagnosis and treatments explained. To call sooner prior to next visit it any questions/concerns arise. Case discussed with collaborating physician Dr. Hermosillo who reviewed the assessment and plan. Chart, medications, labs, vital signs reviewed. Dictation was accomplished with the use of [employer] voice recognition software, prone to medical misidentifications and grammatical errors. This is unintentional and the practitioner does try to identify and correct these, but some could still be present. Please do not hesitate to contact practitioner for clarification. 02/18/2025 Mixed hyperlipidemia (ICD-10 - E78.2) Kaykay [...] Dictation was accomplished with the use of [employer] voice recognition software, prone to medical misidentifications and grammatical errors. This is unintentional and the practitioner does try to identify and correct these, but some could still be present. Please do not hesitate to contact practitioner for clarification. 08/19/2025 General medical exam (ICD-10 - Z00.00) Kaykay is a 65-year-old male present today for CPE. #Healthcare proxy on file. #PHQ-9 negative. #Immunizations: Will update influenza vaccine today. Declines PNA. Otherwise up-to-date on vaccines. #Screenings: Reports colonoscopy performed 2020 at [facility] with recommendations to repeat in 10 years. Do not have records. Will fax [facility] request for records. #Right knee pain: Chronic in nature. Not affecting mobility. 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 He uses ibuprofen as needed. No trauma noted. Unremarkable on physical exam. If knee pain worsens, will consider x-ray. Suspecting osteoarthritis. #Hyperlipidemia: Discontinue rosuvastatin 5 mg. LDL slightly elevated 108. Consistent with fish oil and co-Q10. Recent coronary calcium scan performed with a score of 0, no evidence of coronary artery disease. Will continue to monitor cholesterol every 6 months and repeat coronary calcium scan every 3-5 years. #BPH #elevated PSA: Followed by [facility] urology and seen every 6 months. Scheduled for prostate biopsy August 25. Continue finasteride 5 mg p.o. once daily. #Actinic keratosis: Followed by dermatology. Undergoes UV treatment with 1 scheduled today. # Follow-up 6 months in office with labs. Patient seen and examined. Comprehensive discussion was done on the following. 1. Nutrition: It is important to follow a healthy diet based on lots of vegetables and legumes and good fat. Avoid processed food and processed carbohydrates. Prepare your own meals. Read labels and avoid high fructose corn syrup, processed chemicals added to increase shelf life and preprepared meals. Avoid fast foods. Eat slowly and plan meals for a week. Try to count calories and be mindful of daily calorie intake. Get into the habit of keeping an eye on your weight by using an appropriate scale. Learn to log exercise and discussed fitness Apps like Nudge/loseit which can help keep log off calories taken versus calories burned. Local food should be preferred. Discussed Dirty Dozen Versus Clean Fifteen. Discussed healthy supplements like fish oil, Tumeric, Curcumin, Melatonin, Resveratrol, Probiotics, Vitamin-D, Alpha-Lipoic acid, Vitamin-D and coconut oil. 2. It is important to exercise regularly. Is a good habit to walk at least 30 minutes a day. Gentle weightlifting with standard precautions to protect the back. Finding activity like cycling or hiking and get into the habit of engaging in it. Stretching before and after the exercises important. It is also important to contact me if there are any problems like shortness of breath, chest pain, back pain and joint or muscle pain associated with the exercise. 3. Discussed age appropriate screening guidelines. Colonoscopy needs to start at age 50 with stool for occult blood as appropriate. There is a new test that can test for genetic abnormalities in the stool sample, Cologuard. This would not replace a colonoscopy but could be used as a screening tool for patients who do not want a colonoscopy. We discussed the importance of early detection of colon cancer. 4. Discussed current PSA screening. PSA screening can be done in most patients between age 50 and 65. However early detection of prostate cancer needs to carefully be balanced with complications with treatment. These include incontinence, impotence etc. Each patient should decide if they would like to have this test. 5. Discussed safe driving and no use of smart phone while driving 6. Age-appropriate immunizations were discussed. A tetanus booster is needed every 10 years. Flu vaccine is recommended every year just before the start of the flu season. Shingles vaccine is recommended after age 50 but not all insurances cover it. Pneumonia vaccine is given after age 65 unless there are certain comorbidities for which it is started earlier. 7. Diagnostic labs were discussed. These could include/not limited to CBC CMP and lipids with fasting blood glucose and insulin levels. Vitamin D and hemoglobin A1c testing might be appropriate. All questions answered to patients satisfaction. Patient verbalized understanding of diagnosis and treatments explained. To call sooner prior to next visit it any questions/concerns arise. Case discussed with collaborating physician Dr. Hermosillo who reviewed the assessment and plan. Chart, medications, labs, vital signs reviewed. Dictation was accomplished with the use of [employer] voice recognition software, prone to medical misidentifications and grammatical errors. This is unintentional and the practitioner does try to identify and correct these, but some could still be present. Please do not hesitate to contact practitioner for clarification. 08/19/2025 BPH without urinary obstruction (ICD-10 - N40.0) Kaykay is a 65-year-old male present today for CPE. #Healthcare proxy on file. #PHQ-9 negative. #Immunizations: Will update influenza vaccine today. Declines PNA. Otherwise up-to-date on vaccines. #Screenings: Reports colonoscopy performed 2020 at [facility] with recommendations to repeat in 10 years. Do not have records. Will fax [facility] request for records. #Right knee pain: Chronic in nature. Not affecting mobility. 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 He uses ibuprofen as needed. No trauma noted. Unremarkable on physical exam. If knee pain worsens, will consider x-ray. Suspecting osteoarthritis. #Hyperlipidemia: Discontinue rosuvastatin 5 mg. LDL slightly elevated 108. Consistent with fish oil and co-Q10. Recent coronary calcium scan performed with a score of 0, no evidence of coronary artery disease. Will continue to monitor cholesterol every 6 months and repeat coronary calcium scan every 3-5 years. #BPH #elevated PSA: Followed by [facility] urology and seen every 6 months. Scheduled for prostate biopsy August 25. Continue finasteride 5 mg p.o. once daily. #Actinic keratosis: Followed by dermatology. Undergoes UV treatment with 1 scheduled today. # Follow-up 6 months in office with labs. Patient seen and examined. Comprehensive discussion was done on the following. 1. Nutrition: It is important to follow a healthy diet based on lots of vegetables and legumes and good fat. Avoid processed food and processed carbohydrates. Prepare your own meals. Read labels and avoid high fructose corn syrup, processed chemicals added to increase shelf life and preprepared meals. Avoid fast foods. Eat slowly and plan meals for a week. Try to count calories and be mindful of daily calorie intake. Get into the habit of keeping an eye on your weight by using an appropriate scale. Learn to log exercise and discussed fitness Apps like [employer]/loseit which can help keep log off calories taken versus calories burned. Local food should be preferred. Discussed Dirty Dozen Versus Clean Fifteen. Discussed healthy supplements like fish oil, Tumeric, Curcumin, Melatonin, Resveratrol, Probiotics, Vitamin-D, Alpha-Lipoic acid, Vitamin-D and coconut oil. 2. It is important to exercise regularly. Is a good habit to walk at least 30 minutes a day. Gentle weightlifting with standard precautions to protect the back. Finding activity like cycling or hiking and get into the habit of engaging in it. Stretching before and after the exercises important. It is also important to contact me if there are any problems like shortness of breath, chest pain, back pain and joint or muscle pain associated with the exercise. 3. Discussed age appropriate screening guidelines. Colonoscopy needs to start at age 50 with stool for occult blood as appropriate. There is a new test that can test for genetic abnormalities in the stool sample, Cologuard. This would not replace a colonoscopy but could be used as a screening tool for patients who do not want a colonoscopy. We discussed the importance of early detection of colon cancer. 4. Discussed current PSA screening. PSA screening can be done in most patients between age 50 and 65. However early detection of prostate cancer needs to carefully be balanced with complications with treatment. These include incontinence, impotence etc. Each patient should decide if they would like to have this test. 5. Discussed safe driving and no use of smart phone while driving 6. Age-appropriate immunizations were discussed. A tetanus booster is needed every 10 years. Flu vaccine is recommended every year just before the start of the flu season. Shingles vaccine is recommended after age 50 but not all insurances cover it. Pneumonia vaccine is given after age 65 unless there are certain comorbidities for which it is started earlier. 7. Diagnostic labs were discussed. These could include/not limited to CBC CMP and lipids with fasting blood glucose and insulin levels. Vitamin D and hemoglobin A1c testing might be appropriate. All questions answered to patients satisfaction. Patient verbalized understanding of diagnosis and treatments explained. To call sooner prior to next visit it any questions/concerns arise. Case discussed with collaborating physician Dr. Hermosillo who reviewed the assessment and plan. Chart, medications, labs, vital signs reviewed. Dictation was accomplished with the use of [employer] voice recognition software, prone to medical misidentifications [...] Dictation was accomplished with the use of [employer] voice recognition software, prone to medical misidentifications and grammatical errors. This is unintentional and the practitioner does try to identify and correct these, but some could still be present. Please do not hesitate to contact practitioner for clarification. 08/19/2025 Elevated PSA (ICD-10 - R97.20) Kaykay is a 65-year-old male present today for CPE. #Healthcare proxy on file. #PHQ-9 negative. #Immunizations: Will update influenza vaccine today. Declines PNA. Otherwise up-to-date on vaccines. #Screenings: Reports colonoscopy performed 2020 at [facility] with recommendations to repeat in 10 years. Do not have records. Will fax [facility] request for records. #Right knee pain: Chronic in nature. Not affecting mobility. 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 He uses ibuprofen as needed. No trauma noted. Unremarkable on physical exam. If knee pain worsens, will consider x-ray. Suspecting osteoarthritis. #Hyperlipidemia: Discontinue rosuvastatin 5 mg. LDL slightly elevated 108. Consistent with fish oil and co-Q10. Recent coronary calcium scan performed with a score of 0, no evidence of coronary artery disease. Will continue to monitor cholesterol every 6 months and repeat coronary calcium scan every 3-5 years. #BPH #elevated PSA: Followed by [facility] urology and seen every 6 months. Scheduled for prostate biopsy August 25. Continue finasteride 5 mg p.o. once daily. #Actinic keratosis: Followed by dermatology. Undergoes UV treatment with 1 scheduled today. # Follow-up 6 months in office with labs. Patient seen and examined. Comprehensive discussion was done on the following. 1. Nutrition: It is important to follow a healthy diet based on lots of vegetables and legumes and good fat. Avoid processed food and processed carbohydrates. Prepare your own meals. Read labels and avoid high fructose corn syrup, processed chemicals added to increase shelf life and preprepared meals. Avoid fast foods. Eat slowly and plan meals for a week. Try to count calories and be mindful of daily calorie intake. Get into the habit of keeping an eye on your weight by using an appropriate scale. Learn to log exercise and discussed fitness Apps like Nudge/loseit which can help keep log off calories taken versus calories burned. Local food should be preferred. Discussed Dirty Dozen Versus Clean Fifteen. Discussed healthy supplements like fish oil, Tumeric, Curcumin, Melatonin, Resveratrol, Probiotics, Vitamin-D, Alpha-Lipoic acid, Vitamin-D and coconut oil. 2. It is important to exercise regularly. Is a good habit to walk at least 30 minutes a day. Gentle weightlifting with standard precautions to protect the back. Finding activity like cycling or hiking and get into the habit of engaging in it. Stretching before and after the exercises important. It is also important to contact me if there are any problems like shortness of breath, chest pain, back pain and joint or muscle pain associated with the exercise. 3. Discussed age appropriate screening guidelines. Colonoscopy needs to start at age 50 with stool for occult blood as appropriate. There is a new test that can test for genetic abnormalities in the stool sample, Cologuard. This would not replace a colonoscopy but could be used as a screening tool for patients who do not want a colonoscopy. We discussed the importance of early detection of colon cancer. 4. Discussed current PSA screening. PSA screening can be done in most patients between age 50 and 65. However early detection of prostate cancer needs to carefully be balanced with complications with treatment. These include incontinence, impotence etc. Each patient should decide if they would like to have this test. 5. Discussed safe driving and no use of smart phone while driving 6. Age-appropriate immunizations were discussed. A tetanus booster is needed every 10 years. Flu vaccine is recommended every year just before the start of the flu season. Shingles vaccine is recommended after age 50 but not all insurances cover it. Pneumonia vaccine is given after age 65 unless there are certain comorbidities for which it is started earlier. 7. Diagnostic labs were discussed. These could include/not limited to CBC CMP and lipids with fasting blood glucose and insulin levels. Vitamin D and hemoglobin A1c testing might be appropriate. All questions answered to patients satisfaction. Patient verbalized understanding of diagnosis and treatments explained. To call sooner prior to next visit it any questions/concerns arise. Case discussed with collaborating physician Dr. Hermosillo who reviewed the assessment and plan. Chart, medications, labs, vital signs reviewed. Dictation was accomplished with the use of [employer] voice recognition software, prone to medical misidentifications and grammatical errors. This is unintentional and the practitioner does try to identify and correct these, but some could still be present. Please do not hesitate to contact practitioner for clarification. 08/19/2025 Pain in right knee (ICD-10 - M25.561) Kaykay is a 65-year-old male present today for CPE. #Healthcare proxy on file. #PHQ-9 negative. #Immunizations: Will update influenza vaccine today. Declines PNA. Otherwise up-to-date on vaccines. #Screenings: Reports colonoscopy performed 2020 at [facility] with recommendations to repeat in 10 years. Do not have records. Will fax [facility] request for records. #Right knee pain: Chronic in nature. Not affecting mobility. 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 He uses ibuprofen as needed. No trauma noted. Unremarkable on physical exam. If knee pain worsens, will consider x-ray. Suspecting osteoarthritis. #Hyperlipidemia: Discontinue rosuvastatin 5 mg. LDL slightly elevated 108. Consistent with fish oil and co-Q10. Recent coronary calcium scan performed with a score of 0, no evidence of coronary artery disease. Will continue to monitor cholesterol every 6 months and repeat coronary calcium scan every 3-5 years. #BPH #elevated PSA: Followed by [facility] urology and seen every 6 months. Scheduled for prostate biopsy August 25. Continue finasteride 5 mg p.o. once daily. #Actinic keratosis: Followed by dermatology. Undergoes UV treatment with 1 scheduled today. # Follow-up 6 months in office with labs. Patient seen and examined. Comprehensive discussion was done on the following. 1. Nutrition: It is important to follow a healthy diet based on lots of vegetables and legumes and good fat. Avoid processed food and processed carbohydrates. Prepare your own meals. Read labels and avoid high fructose corn syrup, processed chemicals added to increase shelf life and preprepared meals. Avoid fast foods. Eat slowly and plan meals for a week. Try to count calories and be mindful of daily calorie intake. Get into the habit of keeping an eye on your weight by using an appropriate scale. Learn to log exercise and discussed fitness Apps like [employer] which can help keep log off calories taken versus calories burned. Local food should be preferred. Discussed Dirty Dozen Versus Clean Fifteen. Discussed healthy supplements like fish oil, Tumeric, Curcumin, Melatonin, Resveratrol, Probiotics, Vitamin-D, Alpha-Lipoic acid, Vitamin-D and coconut oil. 2. It is important to exercise regularly. Is a good habit to walk at least 30 minutes a day. Gentle weightlifting with standard precautions to protect the back. Finding activity like cycling or hiking and get into the habit of engaging in it. Stretching before and after the exercises important. It is also important to contact me if there are any problems like shortness of breath, chest pain, back pain and joint or muscle pain associated with the exercise. 3. Discussed age appropriate screening guidelines. Colonoscopy needs to start at age 50 with stool for occult blood as appropriate. There is a new test that can test for genetic abnormalities in the stool sample, Cologuard. This would not replace a colonoscopy but could be used as a screening tool for patients who do not want a colonoscopy. We discussed the importance of early detection of colon cancer. 4. Discussed current PSA screening. PSA screening can be done in most patients between age 50 and 65. However early detection of prostate cancer needs to carefully be balanced with complications with treatment. These include incontinence, impotence etc. Each patient should decide if they would like to have this test. 5. Discussed safe driving and no use of smart phone while driving 6. Age-appropriate immunizations were discussed. A tetanus booster is needed every 10 years. Flu vaccine is recommended every year just before the start of the flu season. Shingles vaccine is recommended after age 50 but not all insurances cover it. Pneumonia vaccine is given after age 65 unless there are certain comorbidities for which it is started earlier. 7. Diagnostic labs were discussed. These could include/not limited to CBC CMP and lipids with fasting blood glucose and insulin levels. Vitamin D and hemoglobin A1c testing might be appropriate. All questions answered to patients satisfaction. Patient verbalized understanding of diagnosis and treatments explained. To call sooner prior to next visit it any questions/concerns arise. Case discussed with collaborating physician Dr. Hermosillo who reviewed the assessment and plan. Chart, medications, labs, vital signs reviewed. Dictation was accomplished with the use of [employer] voice recognition software, prone to medical misidentifications and grammatical errors. This is unintentional and the practitioner does try to identify and correct these, but some could still be present. Please do not hesitate to contact practitioner for clarification. 08/19/2025 Other chronic pain (ICD-10 - G89.29) Kaykay is a 65-year-old male present today for CPE. #Healthcare proxy on file. #PHQ-9 negative. #Immunizations: Will update influenza vaccine today. Declines PNA. Otherwise up-to-date on vaccines. #Screenings: Reports colonoscopy performed 2020 at [facility] with recommendations to repeat in 10 years. Do not have records. Will fax [facility] request for records. #Right knee pain: Chronic in nature. Not affecting mobility. 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 He uses ibuprofen as needed. No trauma noted. Unremarkable on physical exam. If knee pain worsens, will consider x-ray. Suspecting osteoarthritis. #Hyperlipidemia: Discontinue rosuvastatin 5 mg. LDL slightly elevated 108. Consistent with fish oil and co-Q10. Recent coronary calcium scan performed with a score of 0, no evidence of coronary artery disease. Will continue to monitor cholesterol every 6 months and repeat coronary calcium scan every 3-5 years. #BPH #elevated PSA: Followed by [facility] urology and seen every 6 months. Scheduled for prostate biopsy August 25. Continue finasteride 5 mg p.o. once daily. #Actinic keratosis: Followed by dermatology. Undergoes UV treatment with 1 scheduled today. # Follow-up 6 months in office with labs. Patient seen and examined. Comprehensive discussion was done on the following. 1. Nutrition: It is important to follow a healthy diet based on lots of vegetables and legumes and good fat. Avoid processed food and processed carbohydrates. Prepare your own meals. Read labels and avoid high fructose corn syrup, processed chemicals added to increase shelf life and preprepared meals. Avoid fast foods. Eat slowly and plan meals for a week. Try to count calories and be mindful of daily calorie intake. Get into the habit of keeping an eye on your weight by using an appropriate scale. Learn to log exercise and discussed fitness Apps like Nudge/[employer] which can help keep log off calories taken versus calories burned. Local food should be preferred. Discussed Dirty Dozen Versus Clean Fifteen. Discussed healthy supplements like fish oil, Tumeric, Curcumin, Melatonin, Resveratrol, Probiotics, Vitamin-D, Alpha-Lipoic acid, Vitamin-D and coconut oil. 2. It is important to exercise regularly. Is a good habit to walk at least 30 minutes a day. Gentle weightlifting with standard precautions to protect the back. Finding activity like cycling or hiking and get into the habit of engaging in it. Stretching before and after the exercises important. It is also important to contact me if there are any problems like shortness of breath, chest pain, back pain and joint or muscle pain associated with the exercise. 3. Discussed age appropriate screening guidelines. Colonoscopy needs to start at age 50 with stool for occult blood as appropriate. There is a new test that can test for genetic abnormalities in the stool sample, Cologuard. This would not replace a colonoscopy but could be used as a screening tool for patients who do not want a colonoscopy. We discussed the importance of early detection of colon cancer. 4. Discussed current PSA screening. PSA screening can be done in most patients between age 50 and 65. However early detection of prostate cancer needs to carefully be balanced with complications with treatment. These include incontinence, impotence etc. Each patient should decide if they would like to have this test. 5. Discussed safe driving and no use of smart phone while driving 6. Age-appropriate immunizations were discussed. A tetanus booster is needed every 10 years. Flu vaccine is recommended every year just before the start of the flu season. Shingles vaccine is recommended after age 50 but not all insurances cover it. Pneumonia vaccine is given after age 65 unless there are certain comorbidities for which it is started earlier. 7. Diagnostic labs were discussed. These could include/not limited to CBC CMP and lipids with fasting blood glucose and insulin levels. Vitamin D and hemoglobin A1c testing might be appropriate. All questions answered to patients satisfaction. Patient verbalized understanding of diagnosis and treatments explained. To call sooner prior to next visit it any questions/concerns arise. Case discussed with collaborating physician Dr. Hermosillo who reviewed the assessment and plan. Chart, medications, labs, vital signs reviewed. Dictation was accomplished with the use of [employer] voice recognition software, prone to medical misidentifications and grammatical errors. This is unintentional and the practitioner does try to identify and correct these, but some could still be present. Please do not hesitate to contact practitioner for clarification. 08/19/2025 Actinic keratosis (ICD-10 - L57.0) Kaykay is a 65-year-old male present today for CPE. #Healthcare proxy on file. #PHQ-9 negative. #Immunizations: Will update influenza vaccine today. Declines PNA. Otherwise up-to-date on vaccines. #Screenings: Reports colonoscopy performed 2020 at [facility] with recommendations to repeat in 10 years. Do not have records. Will fax [facility] request for records. #Right knee pain: Chronic in nature. Not affecting mobility. 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 He uses ibuprofen as needed. No trauma noted. Unremarkable on physical exam. If knee pain worsens, will consider x-ray. Suspecting osteoarthritis. #Hyperlipidemia: Discontinue rosuvastatin 5 mg. LDL slightly elevated 108. Consistent with fish oil and co-Q10. Recent coronary calcium scan performed with a score of 0, no evidence of coronary artery disease. Will continue to monitor cholesterol every 6 months and repeat coronary calcium scan every 3-5 years. #BPH #elevated PSA: Followed by [facility] urology and seen every 6 months. Scheduled for prostate biopsy August 25. Continue finasteride 5 mg p.o. once daily. #Actinic keratosis: Followed by dermatology. Undergoes UV treatment with 1 scheduled today. # Follow-up 6 months in office with labs. Patient seen and examined. Comprehensive discussion was done on the following. 1. Nutrition: It is important to follow a healthy diet based on lots of vegetables and legumes and good fat. Avoid processed food and processed carbohydrates. Prepare your own meals. Read labels and avoid high fructose corn syrup, processed chemicals added to increase shelf life and preprepared meals. Avoid fast foods. Eat slowly and plan meals for a week. Try to count calories and be mindful of daily calorie intake. Get into the habit of keeping an eye on your weight by using an appropriate scale. Learn to log exercise and discussed fitness Apps like Nudge/Circalit which can help keep log off calories taken versus calories burned. Local food should be preferred. Discussed Dirty Dozen Versus Clean Fifteen. Discussed healthy supplements like fish oil, Tumeric, Curcumin, Melatonin, Resveratrol, Probiotics, Vitamin-D, Alpha-Lipoic acid, Vitamin-D and coconut oil. 2. It is important to exercise regularly. Is a good habit to walk at least 30 minutes a day. Gentle weightlifting with standard precautions to protect the back. Finding activity like cycling or hiking and get into the habit of engaging in it. Stretching before and after the exercises important. It is also important to contact me if there are any problems like shortness of breath, chest pain, back pain and joint or muscle pain associated with the exercise. 3. Discussed age appropriate screening guidelines. Colonoscopy needs to start at age 50 with stool for occult blood as appropriate. There is a new test that can test for genetic abnormalities in the stool sample, Cologuard. This would not replace a colonoscopy but could be used as a screening tool for patients who do not want a colonoscopy. We discussed the importance of early detection of colon cancer. 4. Discussed current PSA screening. PSA screening can be done in most patients between age 50 and 65. However early detection of prostate cancer needs to carefully be balanced with complications with treatment. These include incontinence, impotence etc. Each patient should decide if they would like to have this test. 5. Discussed safe driving and no use of smart phone while driving 6. Age-appropriate immunizations were discussed. A tetanus booster is needed every 10 years. Flu vaccine is recommended every year just before the start of the flu season. Shingles vaccine is recommended after age 50 but not all insurances cover it. Pneumonia vaccine is given after age 65 unless there are certain comorbidities for which it is started earlier. 7. Diagnostic labs were discussed. These could include/not limited to CBC CMP and lipids with fasting blood glucose and insulin levels. Vitamin D and hemoglobin A1c testing might be appropriate. All questions answered to patients satisfaction. Patient verbalized understanding of diagnosis and treatments explained. To call sooner prior to next visit it any questions/concerns arise. Case discussed with collaborating physician Dr. Hermosillo who reviewed the assessment and plan. Chart, medications, labs, vital signs reviewed. Dictation was accomplished with the use of [employer] voice recognition software, prone to medical misidentifications and grammatical errors. This is unintentional and the practitioner does try to identify and correct these, but some could still be present. Please do not hesitate to contact practitioner for clarification. 08/19/2025 Encounter for examination of blood pressure without abnormal findings (ICD-10 - Z01.30) Kaykay is a 65-year-old male present today for CPE. #Healthcare proxy on file. #PHQ-9 negative. #Immunizations: Will update influenza vaccine today. Declines PNA. Otherwise up-to-date on vaccines. #Screenings: Reports colonoscopy performed 2020 at [facility] with recommendations to repeat in 10 years. Do not have records. Will fax [facility] request for records. #Right knee pain: Chronic in nature. Not affecting mobility. 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 He uses ibuprofen as needed. No trauma noted. Unremarkable on physical exam. If knee pain worsens, will consider x-ray. Suspecting osteoarthritis. #Hyperlipidemia: Discontinue rosuvastatin 5 mg. LDL slightly elevated 108. Consistent with fish oil and co-Q10. Recent coronary calcium scan performed with a score of 0, no evidence of coronary artery disease. Will continue to monitor cholesterol every 6 months and repeat coronary calcium scan every 3-5 years. #BPH #elevated PSA: Followed by [facility] urology and seen every 6 months. Scheduled for prostate biopsy August 25. Continue finasteride 5 mg p.o. once daily. #Actinic keratosis: Followed by dermatology. Undergoes UV treatment with 1 scheduled today. # Follow-up 6 months in office with labs. Patient seen and examined. Comprehensive discussion was done on the following. 1. Nutrition: It is important to follow a healthy diet based on lots of vegetables and legumes and good fat. Avoid processed food and processed carbohydrates. Prepare your own meals. Read labels and avoid high fructose corn syrup, processed chemicals added to increase shelf life and preprepared meals. Avoid fast foods. Eat slowly and plan meals for a week. Try to count calories and be mindful of daily calorie intake. Get into the habit of keeping an eye on your weight by using an appropriate scale. Learn to log exercise and discussed fitness Apps like Nudge/Circalit which can help keep log off calories taken versus calories burned. Local food should be preferred. Discussed Dirty Dozen Versus Clean Fifteen. Discussed healthy supplements like fish oil, Tumeric, Curcumin, Melatonin, Resveratrol, Probiotics, Vitamin-D, Alpha-Lipoic acid, Vitamin-D and coconut oil. 2. It is important to exercise regularly. Is a good habit to walk at least 30 minutes a day. Gentle weightlifting with standard precautions to protect the back. Finding activity like cycling or hiking and get into the habit of engaging in it. Stretching before and after the exercises important. It is also important to contact me if there are any problems like shortness of breath, chest pain, back pain and joint or muscle pain associated with the exercise. 3. Discussed age appropriate screening guidelines. Colonoscopy needs to start at age 50 with stool for occult blood as appropriate. There is a new test that can test for genetic abnormalities in the stool sample, Cologuard. This would not replace a colonoscopy but could be used as a screening tool for patients who do not want a colonoscopy. We discussed the importance of early detection of colon cancer. 4. Discussed current PSA screening. PSA screening can be done in most patients between age 50 and 65. However early detection of prostate cancer needs to carefully be balanced with complications with treatment. These include incontinence, impotence etc. Each patient should decide if they would like to have this test. 5. Discussed safe driving and no use of smart phone while driving 6. Age-appropriate immunizations were discussed. A tetanus booster is needed every 10 years. Flu vaccine is recommended every year just before the start of the flu season. Shingles vaccine is recommended after age 50 but not all insurances cover it. Pneumonia vaccine is given after age 65 unless there are certain comorbidities for which it is started earlier. 7. Diagnostic labs were discussed. These could include/not limited to CBC CMP and lipids with fasting blood glucose and insulin levels. Vitamin D and hemoglobin A1c testing might be appropriate. All questions answered to patients satisfaction. Patient verbalized understanding of diagnosis and treatments explained. To call sooner prior to next visit it any questions/concerns arise. Case discussed with collaborating physician Dr. Hermosillo who reviewed the assessment and plan. Chart, medications, labs, vital signs reviewed. Dictation was accomplished with the use of [employer] voice recognition software, prone to medical misidentifications and grammatical errors. This is unintentional and the practitioner does try to identify and correct these, but some could still be present. Please do not hesitate to contact practitioner for clarification. 08/19/2025 Encounter for immunization (ICD-10 - Z23) Kaykay is a 65-year-old male present today for CPE. #Healthcare proxy on file. #PHQ-9 negative. #Immunizations: Will update influenza vaccine today. Declines PNA. Otherwise up-to-date on vaccines. #Screenings: Reports colonoscopy performed 2020 at [facility] with recommendations to repeat in 10 years. Do not have records. Will fax [facility] request for records. #Right knee pain: Chronic in nature. Not affecting mobility. 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 He uses ibuprofen as needed. No trauma noted. Unremarkable on physical exam. If knee pain worsens, will consider x-ray. Suspecting osteoarthritis. #Hyperlipidemia: Discontinue rosuvastatin 5 mg. LDL slightly elevated 108. Consistent with fish oil and co-Q10. Recent coronary calcium scan performed with a score of 0, no evidence of coronary artery disease. Will continue to monitor cholesterol every 6 months and repeat coronary calcium scan every 3-5 years. #BPH #elevated PSA: Followed by [facility] urology and seen every 6 months. Scheduled for prostate biopsy August 25. Continue finasteride 5 mg p.o. once daily. #Actinic keratosis: Followed by dermatology. Undergoes UV treatment with 1 scheduled today. # Follow-up 6 months in office with labs. Patient seen and examined. Comprehensive discussion was done on the following. 1. Nutrition: It is important to follow a healthy diet based on lots of vegetables and legumes and good fat. Avoid processed food and processed carbohydrates. Prepare your own meals. Read labels and avoid high fructose corn syrup, processed chemicals added to increase shelf life and preprepared meals. Avoid fast foods. Eat slowly and plan meals for a week. Try to count calories and be mindful of daily calorie intake. Get into the habit of keeping an eye on your weight by using an appropriate scale. Learn to log exercise and discussed fitness Apps like Nudge/Circalit which can help keep log off calories taken versus calories burned. Local food should be preferred. Discussed Dirty Dozen Versus Clean Fifteen. Discussed healthy supplements like fish oil, Tumeric, Curcumin, Melatonin, Resveratrol, Probiotics, Vitamin-D, Alpha-Lipoic acid, Vitamin-D and coconut oil. 2. It is important to exercise regularly. Is a good habit to walk at least 30 minutes a day. Gentle weightlifting with standard precautions to protect the back. Finding activity like cycling or hiking and get into the habit of engaging in it. Stretching before and after the exercises important. It is also important to contact me if there are any problems like shortness of breath, chest pain, back pain and joint or muscle pain associated with the exercise. 3. Discussed age appropriate screening guidelines. Colonoscopy needs to start at age 50 with stool for occult blood as appropriate. There is a new test that can test for genetic abnormalities in the stool sample, Cologuard. This would not replace a colonoscopy but could be used as a screening tool for patients who do not want a colonoscopy. We discussed the importance of early detection of colon cancer. 4. Discussed current PSA screening. PSA screening can be done in most patients between age 50 and 65. However early detection of prostate cancer needs to carefully be balanced with complications with treatment. These include incontinence, impotence etc. Each patient should decide if they would like to have this test. 5. Discussed safe driving and no use of smart phone while driving 6. Age-appropriate immunizations were discussed. A tetanus booster is needed every 10 years. Flu vaccine is recommended every year just before the start of the flu season. Shingles vaccine is recommended after age 50 but not all insurances cover it. Pneumonia vaccine is given after age 65 unless there are certain comorbidities for which it is started earlier. 7. Diagnostic labs were discussed. These could include/not limited to CBC CMP and lipids with fasting blood glucose and insulin levels. Vitamin D and hemoglobin A1c testing might be appropriate. All questions answered to patients satisfaction. Patient verbalized understanding of diagnosis and treatments explained. To call sooner prior to next visit it any questions/concerns arise. Case discussed with collaborating physician Dr. Hermosillo who reviewed the assessment and plan. Chart, medications, labs, vital signs reviewed. Dictation was accomplished with the use of [employer] voice recognition software, prone to medical misidentifications and grammatical errors. This is unintentional and the practitioner does try to identify and correct these, but some could still be present. Please do not hesitate to contact practitioner for clarification. Plan Of Treatment Pending Test Test Name Order Date EKG 04/18/2022 LIPID PANEL, STANDARD 07/20/2024 LIPID PANEL, STANDARD 02/18/2025 LIPID PANEL, STANDARD 08/19/2025 LIPID PANEL, STANDARD 01/15/2024 COMPREHENSIVE METABOLIC PANEL 02/18/2025 COMPREHENSIVE METABOLIC PANEL 01/15/2024 COMPREHENSIVE METABOLIC PANEL 07/20/2024 URIC ACID 01/15/2024 CBC (INCLUDES DIFF/PLT) 07/20/2024 CBC (INCLUDES DIFF/PLT) 01/15/2024 CBC (INCLUDES DIFF/PLT) 02/18/2025 URINALYSIS, COMPLETE 07/23/2022 URINALYSIS, COMPLETE 01/15/2024 URINALYSIS, COMPLETE 07/20/2024 HEMOGLOBIN A1c 02/18/2025 PSA (FREE AND TOTAL) 02/18/2025 VITAMIN D,25-OH,TOTAL,IA 02/18/2025 TSH+T4F+T3Free 02/18/2025 Next Appt Details Provider Name:TYRON ROSSA, 02/17/2026 08:15:00 AM, [address], [place], [address], Insurance Providers Payer Name Payer Address Payer Phone Subscriber Number Group Number Insured Name Patient Relationship to Insured Coverage Start Date Coverage End Date [facility] [address] [place] [address] [id number] Kaykay Young Self - patient is the insured Medical (General) History Medical History History ICD Code seasonal allergies Hyperlipidemia BPH Elevated PSA followed by [facility] Actinic keratosis followed by dermatolog y
== END 2025-09-10 14:09 | disposition home or self-care (01) ==
LOC: HO.HUSH 13:06
PROVIDERS: Visit Provider Urology
DX: R97.20 Elevated prostate specific antigen [PSA] (principal); N41.9 Inflammatory disease of prostate, unspecified
CPT/HCPCS: 99213; G2211